=== PATIENT | male | born 1970 | race Two or more races ===

== ENCOUNTER 2018-03-26 13:47 | Emergency (ER) | payer MEDICAID, OTHER ==
[~2018-03-26] VITALS: Ht 167.6 cm; Wt 81.8 kg
[~2018-03-26 13:47] MED LIST: ATOR10TA PO; HYDR-4069 PO
[2018-03-26] MEDS ORDERED: normal saline 1000ML IV soln IVB ONE ×2 (14:05)
[2018-03-26] MEDS ORDERED: LORazepam 2 mg/ml vial IV ONE ×2 (14:05→16:45)
[2018-03-26] MEDS ORDERED: metoclopramide 5 mg/ml inj IV ONE (14:05)
[2018-03-26] MEDS ORDERED: diphenhydrAMINE 50 mg/ml inj IV ONE (14:05)
[2018-03-26 14:19] LABS: BASOPHILS # (AUTO) 0.2 X10'3 (0-0.2); BASOPHILS % (AUTO) 1.4 % (0-1); EOSINOPHILS % (AUTO) 0.2 % (0-6); HEMATOCRIT 53.8 % (42.0-52.0); LYMPHOCYTES # (AUTO) 1.6 X10'3 (1.1-4.8); LYMPHOCYTES % (AUTO) 11.1 % (21-51); MEAN CORPUSCULAR HEMOGLOBIN 30.1 PG (27.0-31.0); MEAN CORPUSCULAR HGB CONC 33.7 % (33.0-36.5); MEAN CORPUSCULAR VOLUME 89.2 FL (78-98); MEAN PLATELET VOLUME 9.5 FL (7.4-10.4); MONOCYTES # (AUTO) 0.5 X10'3 (0-0.9); MONOCYTES % (AUTO) 3.3 % (2-12); NEUTROPHILS # (AUTO) 11.8 X10'3 (1.8-7.7); PLATELET COUNT 298 X10'3 (140-440); RED BLOOD COUNT 6.04 X10'6 (4.70-6.10); RED CELL DISTRIBUTION WIDTH 12.5 % (11.5-14.5); WHITE BLOOD COUNT 14.1 X10'3 (4.5-11.0)
[2018-03-26 14:25] LABS: HEMOGLOBIN 18.2 g/dl (14.0-17.9)
[2018-03-26 14:44] LABS: ALANINE AMINOTRANSFERASE 63 U/L (12-78); ALBUMIN 4.6 G/DL (3.4-5.0); ALBUMIN/GLOBULIN RATIO 1.2 (1.1-1.5); ALKALINE PHOSPHATASE 107 IU/L (46-116); ANION GAP 12 (8-16); ASPARTATE AMINO TRANSFERASE 30 U/L (10-37); BILIRUBIN,TOTAL 0.5 MG/DL (0.1-1.0); BLOOD UREA NITROGEN 13 MG/DL (7-18); BUN/CREATININE RATIO 10.3 (5.4-32.0); CALCIUM 9.4 MG/DL (8.5-10.1); CHLORIDE 99 MMOL/L (99-107); CREATININE 1.26 MG/DL (0.60-1.10); GLUCOSE 170 MG/DL (70-104); LIPASE 129 U/L (73-393); POTASSIUM 4.3 MMOL/L (3.5-5.1); SODIUM 136 MMOL/L (135-145); TOTAL CARBON DIOXIDE 24.6 MMOL/L (24-32); TOTAL PROTEIN 8.5 G/DL (6.4-8.2); eGFR 62 ML/MIN
[2018-03-26] MEDS ORDERED: magnesium 2GM in 50ml NS 50 ML IV ONE (14:50)
[2018-03-26 15:34] LABS: CLARITY,URINE CLEAR (Clear); COLOR,URINE STRAW (Yellow); GLUCOSE, URINE NEGATIVE (Neg); KETONES,URINE 15 mg/dl (Neg); LEUKOCYTE ESTERASE ,URINE NEGATIVE (Neg); NITRITES, URINE NEGATIVE (Neg); OCCULT BLOOD,URINE NEGATIVE (Neg); PH,URINE 8.5 (4.8-8.0); PROTEIN,URINE NEGATIVE (Neg); UROBILINOGEN,URINE 0.2 E.U/dL (0.2-1.0)
[2018-03-26 15:39] LABS: UA COLLECTION TYPE URINAL
[2018-03-26] MEDS ORDERED: cloNIDine 0.1 mg tablet PO ONE (15:55)
[2018-03-26] MEDS ORDERED: cloNIDine 0.1 mg tablet PO SCH (15:55)
[2018-03-26 16:20] LABS: TROPONIN I < 0.04 NG/ML (0.0-0.05)
[2018-03-26] MEDS ORDERED: ondansetron/PF 4mg/2ml inj IV ONE (16:45)
[2018-03-26] MEDS ORDERED: hydrALAZINE 25 MG tablet PO STA (17:09)
[2018-03-26] MEDS ORDERED: metoprolol tartrate 50mg tablet PO ONE (17:10)
[2018-03-26] MEDS ORDERED: ONDA4TAB12 PO (18:39)
[2018-03-26] MEDS ORDERED: LISI40TA4 PO (18:39)
[2018-03-26 19:04] VITALS: BP 106/90
== END 2018-03-26 19:06 | disposition home or self-care (01) ==
LOC: ER 13:47
DX: R11.2 Nausea with vomiting, unspecified (principal); I10 Essential (primary) hypertension; F12.10 Cannabis abuse, uncomplicated; Z79.899 Other long term (current) drug therapy
CPT/HCPCS: 36415; 74176; 80053; 81003; 83690; 84484; 85025; 93005; 96361; 96365; 96366; 96375; 96376; 99284; J1200; J2060; J2405; J2765; J3475; J7030

== ENCOUNTER 2018-04-10 12:18 | Inpatient (IN) | payer OTHER | END 2018-04-12 12:26 | disposition home or self-care (01) | LOC: ER 12:18 → ED HOLD 14:55 → PCU 3S 19:35 ==

== ENCOUNTER 2018-10-14 16:01 | Emergency (ER) | payer MEDICAID ==
[~2018-10-14] VITALS: Ht 167.6 cm; Wt 85.0 kg
[~2018-10-14 16:01] MED LIST changes: +AMLO5TAB16 PO; +ASPI-1265 PO; -ATOR10TA PO; -HYDR-4069 PO; +HYDR25TA4 PO; +LISI40TA4 PO; +LOVA40TA2 PO; +METO25TA6 PO
[2018-10-14] MEDS ORDERED: aspirin 325mg tablet PO ONE (16:25)
[2018-10-14] MEDS ORDERED: LORazepam 2 mg/ml vial IV ONE (16:25)
[2018-10-14 16:40] LABS: BASOPHILS # (AUTO) 0.1 X10'3 (0-0.2); BASOPHILS % (AUTO) 0.6 % (0-1); EOSINOPHILS # (AUTO) 0.2 X10'3 (0-0.9); EOSINOPHILS % (AUTO) 1.7 % (0-6); HEMATOCRIT 45.8 % (42.0-52.0); HEMOGLOBIN 15.7 g/dl (14.0-17.9); LYMPHOCYTES # (AUTO) 2.1 X10'3 (1.1-4.8); LYMPHOCYTES % (AUTO) 21.9 % (21-51); MEAN CORPUSCULAR HEMOGLOBIN 29.8 PG (27.0-31.0); MEAN CORPUSCULAR HGB CONC 34.4 g/dL (33.0-36.5); MEAN CORPUSCULAR VOLUME 86.8 FL (78-98); MEAN PLATELET VOLUME 8.5 FL (7.4-10.4); MONOCYTES # (AUTO) 0.7 X10'3 (0-0.9); MONOCYTES % (AUTO) 7.9 % (2-12); NEUTROPHILS # (AUTO) 6.4 X10'3 (1.8-7.7); NEUTROPHILS % (AUTO) 67.9 % (42-75); PLATELET COUNT 306 X10'3 (140-440); RED BLOOD COUNT 5.27 X10'6 (4.70-6.10); RED CELL DISTRIBUTION WIDTH 13.9 % (11.5-14.5); WHITE BLOOD COUNT 9.5 X10'3 (4.5-11.0)
[2018-10-14] MEDS ORDERED: ketorolac trometh. 30mg/ml inj. IV ONE (16:45)
[2018-10-14 16:52] LABS: PARTIAL THROMBOPLASTIN TIME 29 SECONDS (22-32)
[2018-10-14 16:54] LABS: ALANINE AMINOTRANSFERASE 72 U/L (12-78); ALBUMIN 4.2 G/DL (3.4-5.0); ALBUMIN/GLOBULIN RATIO 1.1 (1.1-1.5); ALKALINE PHOSPHATASE 100 IU/L (46-116); ANION GAP 10 (8-16); ASPARTATE AMINO TRANSFERASE 24 U/L (10-37); BILIRUBIN,TOTAL 0.5 MG/DL (0.1-1.0); BLOOD UREA NITROGEN 20 MG/DL (7-18); CALCIUM 9.3 MG/DL (8.5-10.1); CHLORIDE 103 MMOL/L (99-107); CREATININE 1.67 MG/DL (0.60-1.10); GLUCOSE 97 MG/DL (70-104); POTASSIUM 3.3 MMOL/L (3.5-5.1); SODIUM 138 MMOL/L (135-145); TOTAL CARBON DIOXIDE 25.2 MMOL/L (24-32); eGFR 44 ML/MIN
[2018-10-14 19:47] VITALS: BP 123/56
== END 2018-10-14 19:48 | disposition home or self-care (01) ==
LOC: ER 16:02
DX: R07.89 Other chest pain (principal); I10 Essential (primary) hypertension; M54.2 Cervicalgia; I25.10 Atherosclerotic heart disease of native coronary artery without angina pectoris; E78.00 Pure hypercholesterolemia, unspecified; F12.90 Cannabis use, unspecified, uncomplicated; Z79.82 Long term (current) use of aspirin; Z79.899 Other long term (current) drug therapy
CPT/HCPCS: 36415; 71045; 80053; 84484; 85025; 85610; 85730; 93005; 96374; 96375; 99284; J1885; J2060

== ENCOUNTER 2019-06-25 14:11 | Emergency (ER) | payer MEDICAID ==
[~2019-06-25] VITALS: Ht 167.6 cm; Wt 86.0 kg
[2019-06-25] MEDS ORDERED: normal saline 1000ML IV soln IVB ONE ×3 (14:30→15:55)
[2019-06-25] MEDS ORDERED: ondansetron/PF 4mg/2ml inj IV ONE ×2 (14:30→15:55)
[2019-06-25 15:09] LABS: BASOPHILS # (AUTO) 0.1 X10'3 (0-0.2); BASOPHILS % (AUTO) 0.6 % (0-1); EOSINOPHILS % (AUTO) 0.1 % (0-6); HEMATOCRIT 50.6 % (42.0-52.0); HEMOGLOBIN 17.3 g/dl (14.0-17.9); LYMPHOCYTES # (AUTO) 1.4 X10'3 (1.1-4.8); LYMPHOCYTES % (AUTO) 9.5 % (21-51); MEAN CORPUSCULAR HGB CONC 34.3 g/dL (33.0-36.5); MEAN CORPUSCULAR VOLUME 87.5 FL (78-98); MEAN PLATELET VOLUME 9.4 FL (7.4-10.4); MONOCYTES # (AUTO) 0.4 X10'3 (0-0.9); MONOCYTES % (AUTO) 2.4 % (2-12); NEUTROPHILS # (AUTO) 12.9 X10'3 (1.8-7.7); NEUTROPHILS % (AUTO) 87.4 % (42-75); PLATELET COUNT 325 X10'3 (140-440); RED BLOOD COUNT 5.78 X10'6 (4.70-6.10); RED CELL DISTRIBUTION WIDTH 13.6 % (11.5-14.5); WHITE BLOOD COUNT 14.7 X10'3 (4.5-11.0)
[2019-06-25 15:14] LABS: ALANINE AMINOTRANSFERASE 40 U/L (12-78); ALBUMIN 4.4 G/DL (3.4-5.0); ALBUMIN/GLOBULIN RATIO 1.2 (1.1-1.5); ALKALINE PHOSPHATASE 119 IU/L (46-116); ANION GAP 14 (8-16); ASPARTATE AMINO TRANSFERASE 26 U/L (10-37); BILIRUBIN,TOTAL 0.7 MG/DL (0.1-1.0); BLOOD UREA NITROGEN 18 MG/DL (7-18); BUN/CREATININE RATIO 16.1 (5.4-32.0); CALCIUM 9.5 MG/DL (8.5-10.1); CHLORIDE 103 MMOL/L (99-107); CREATININE 1.12 MG/DL (0.60-1.10); GLUCOSE 174 MG/DL (70-104); LIPASE 137 U/L (73-393); POTASSIUM 3.2 MMOL/L (3.5-5.1); SODIUM 138 MMOL/L (135-145); TOTAL CARBON DIOXIDE 20.8 MMOL/L (24-32); TOTAL PROTEIN 8.2 G/DL (6.4-8.2); eGFR 70 ML/MIN
[2019-06-25] MEDS ORDERED: famotidine/PF 10 mg/ml inj IV ONE (15:25)
[2019-06-25] MEDS ORDERED: potassium Cl 20 mEq SR tablet PO STA (15:31)
[2019-06-25] MEDS ORDERED: iohexol 300mg/ml 100ml inj. ONE (15:59)
[2019-06-25 16:12] LABS: CLARITY,URINE CLEAR (Clear); COLOR,URINE YELLOW (Yellow); GLUCOSE, URINE 100 mg/dl (Neg); KETONES,URINE TRACE mg/dl (Neg); LEUKOCYTE ESTERASE ,URINE NEGATIVE (Neg); NITRITES, URINE NEGATIVE (Neg); OCCULT BLOOD,URINE TRACE-INTACT (Neg); PH,URINE 7.5 (4.8-8.0); PROTEIN,URINE NEGATIVE (Neg); UROBILINOGEN,URINE 0.2 E.U/dL (0.2-1.0)
[2019-06-25 16:16] LABS: UA COLLECTION TYPE CLN CATCH MIDSTREAM
[2019-06-25 16:29] LABS: BACTERIA,URINE NONE SEEN /HPF (Neg); SQUAMOUS EPITHELIAL CELL,UR NONE SEEN /LPF (FEW); WBC,URINE NONE SEEN /HPF (0-4)
[2019-06-25 16:49] LABS: URINE AMPHETAMINE SCREEN NEGATIVE (Neg); URINE BARBITUATE SCREEN NEGATIVE (Neg); URINE BENZODIAZEPINES SCREEN NEGATIVE (Neg); URINE CANNABINOID SCREEN POSITIVE (Neg); URINE COCAINE SCREEN NEGATIVE (Neg); URINE METHADONE SCREEN NEGATIVE (Neg); URINE OPIATE SCREEN NEGATIVE (Neg); URINE PHENCYCLIDINE SCREEN NEGATIVE (Neg)
[2019-06-25] MEDS ORDERED: oxyCODONE/APAP 5-325mg tablet PO ONE (16:55)
[2019-06-25] MEDS ORDERED: ketorolac trometh. 30mg/ml inj. IV ONE (16:55)
[2019-06-25] MEDS ORDERED: cloNIDine 0.1 mg tablet PO ONE (16:55)
[2019-06-25] MEDS ORDERED: LORazepam 2 mg/ml vial IV ONE (16:55)
[2019-06-25 17:09] LABS: ETHANOL < 0.010 GM/DL (0.0-0.010)
[2019-06-25] MEDS ORDERED: tamsulosin 0.4mg capsule PO ONE (17:55)
[2019-06-25 17:58] VITALS: BP 192/98
[2019-06-25] MEDS ORDERED: ONDA4TAB6 PO (18:33)
[2019-06-25] MEDS ORDERED: KETO10TA2 PO (18:33)
[2019-06-25] MEDS ORDERED: TADA20TA PO (18:33)
[2019-06-25] MEDS ORDERED: HYDR-4353 PO (18:33)
[2019-06-25] MEDS ORDERED: tamsulosin 0.4mg capsule PO SCH (21:00)
== END 2019-06-25 20:10 | disposition home or self-care (01) ==
LOC: ER 14:12
DX: N23 Unspecified renal colic (principal); N20.0 Calculus of kidney; D72.829 Elevated white blood cell count, unspecified; R42 Dizziness and giddiness; I10 Essential (primary) hypertension; E78.00 Pure hypercholesterolemia, unspecified; I25.10 Atherosclerotic heart disease of native coronary artery without angina pectoris; F12.90 Cannabis use, unspecified, uncomplicated; Z79.82 Long term (current) use of aspirin
CPT/HCPCS: 36415; 74177; 80053; 80305; 80320; 81001; 83690; 84145; 84484; 85025; 93005; 96361; 96374; 96375; 96376; 99285; J1885; J2060; J2405; J3490; J7030; Q9967

== ENCOUNTER 2019-12-28 17:25 | Emergency (ER) | payer MEDICAID ==
[~2019-12-28] VITALS: Ht 165.1 cm; Wt 80.0 kg
[~2019-12-28 17:25] MED LIST changes: +KETO10TA2 PO; +ONDA4TAB6 PO; +TADA20TA PO
[2019-12-28 19:06] LABS: BASOPHILS % (AUTO) 0.2 % (0-1); EOSINOPHILS % (AUTO) 0.1 % (0-6); HEMATOCRIT 47.3 % (42.0-52.0); HEMOGLOBIN 16.2 g/dl (14.0-17.9); LYMPHOCYTES % (AUTO) 7.4 % (21-51); MEAN CORPUSCULAR HEMOGLOBIN 30.4 PG (27.0-31.0); MEAN CORPUSCULAR HGB CONC 34.4 g/dL (33.0-36.5); MEAN CORPUSCULAR VOLUME 88.5 FL (78-98); MEAN PLATELET VOLUME 9.4 FL (7.4-10.4); MONOCYTES # (AUTO) 0.3 X10'3 (0-0.9); MONOCYTES % (AUTO) 2.4 % (2-12); NEUTROPHILS # (AUTO) 12.7 X10'3 (1.8-7.7); NEUTROPHILS % (AUTO) 89.9 % (42-75); PLATELET COUNT 340 X10'3 (140-440); RED BLOOD COUNT 5.34 X10'6 (4.70-6.10); RED CELL DISTRIBUTION WIDTH 13.9 % (11.5-14.5); WHITE BLOOD COUNT 14.1 X10'3 (4.5-11.0)
[2019-12-28 19:15] LABS: ALANINE AMINOTRANSFERASE 43 U/L (12-78); ALBUMIN 4.6 G/DL (3.4-5.0); ALBUMIN/GLOBULIN RATIO 1.3 (1.1-1.5); ALKALINE PHOSPHATASE 121 IU/L (46-116); ANION GAP 8 (8-16); ASPARTATE AMINO TRANSFERASE 20 U/L (10-37); BILIRUBIN,TOTAL 0.6 MG/DL (0.1-1.0); BLOOD UREA NITROGEN 19 MG/DL (7-18); BUN/CREATININE RATIO 16.8 (5.4-32.0); CALCIUM 9.8 MG/DL (8.5-10.1); CHLORIDE 103 MMOL/L (99-107); CREATININE 1.13 MG/DL (0.60-1.10); GLUCOSE 160 MG/DL (70-104); LIPASE 99 U/L (73-393); POTASSIUM 3.2 MMOL/L (3.5-5.1); SODIUM 134 MMOL/L (135-145); TOTAL CARBON DIOXIDE 22.8 MMOL/L (24-32); TOTAL PROTEIN 8.1 G/DL (6.4-8.2); eGFR 69 ML/MIN
[2019-12-28] MEDS ORDERED: ondansetron/PF 4mg/2ml inj IV ONE ×2 (19:20→19:25)
[2019-12-28] MEDS ORDERED: normal saline 1000ML IV soln IVB ONE (19:20)
[2019-12-28] MEDS ORDERED: pantoprazole 40 MG vial IV ONE (19:25)
[2019-12-28] MEDS ORDERED: morphine 10mg/ml inj. IV ONE (19:25)
--- NOTE | 2019-12-28 19:45 | NUR ---
PT O2 SATURATIONS FLUCTUATE FROM 95% TO 69% RA. PT PLACED ON 2 L NC AND KEEPING SATS ABOVE 90%. PT RESPIRATIONS SHALLOW BUT 18 PER MINUTE. PT DENIES ANY OTHER OPIOID USE TODAY. EMILY WEAVING INSPECTOR NOTIFIED.
--- NOTE | 2019-12-28 20:20 | NUR ---
PT TO CT ON 2 L NC PORTABLE OXYGEN TANK
[2019-12-28 21:20] LABS: CLARITY,URINE CLEAR (Clear); COLOR,URINE YELLOW (Yellow); GLUCOSE, URINE NEGATIVE (Neg); KETONES,URINE 15 mg/dl (Neg); LEUKOCYTE ESTERASE ,URINE NEGATIVE (Neg); NITRITES, URINE NEGATIVE (Neg); OCCULT BLOOD,URINE NEGATIVE (Neg); PH,URINE 8.5 (4.8-8.0); PROTEIN,URINE NEGATIVE (Neg); UROBILINOGEN,URINE 0.2 E.U/dL (0.2-1.0)
[2019-12-28 21:21] LABS: UA COLLECTION TYPE URINAL
--- NOTE | 2019-12-28 21:42 | NUR ---
PT PASSED PO CHALLENGE. NO VOMITING OR NAUSEA
[2019-12-28] MEDS ORDERED: HYDR-4383 PO (21:49)
[2019-12-28] MEDS ORDERED: FLO0.4C PO (21:49)
[2019-12-28 22:14] VITALS: BP 160/80
== END 2019-12-28 22:19 | disposition home or self-care (01) ==
LOC: ER 17:26
DX: N20.0 Calculus of kidney (principal); N13.30 Unspecified hydronephrosis; I25.10 Atherosclerotic heart disease of native coronary artery without angina pectoris; I10 Essential (primary) hypertension; F12.90 Cannabis use, unspecified, uncomplicated; Z79.899 Other long term (current) drug therapy
CPT/HCPCS: 36415; 74176; 80053; 81003; 83690; 85025; 96361; 96374; 96375; 99284; C9113; J2270; J2405; J7030

== ENCOUNTER 2019-12-30 20:43 | Emergency (ER) | payer MEDICAID ==
[~2019-12-30] VITALS: Ht 167.6 cm; Wt 79.5 kg
[~2019-12-30 20:43] MED LIST changes: +FLO0.4C PO; +HYDR-4383 PO
[2019-12-30] MEDS ORDERED: CefTRIAXone 2gm/D5W 50ml 50 ML IV ONE (20:50)
[2019-12-30] MEDS ORDERED: diphenhydrAMINE 50 mg/ml inj IV ONE (20:50)
[2019-12-30] MEDS ORDERED: metoclopramide 5 mg/ml inj IV ONE (20:50)
[2019-12-30] MEDS ORDERED: morphine 4 MG/ML inj SYRINge IV ONE (20:50)
[2019-12-30] MEDS ORDERED: ketorolac trometh. 30mg/ml inj. IV ONE (20:50)
[2019-12-30] MEDS ORDERED: normal saline 1000ML IV soln IV ONE (20:50)
[2019-12-30 21:17] LABS: BASOPHILS % (AUTO) 0.4 % (0-1); EOSINOPHILS % (AUTO) 0 % (0-6); HEMATOCRIT 48.2 % (42.0-52.0); HEMOGLOBIN 16.6 g/dl (14.0-17.9); LYMPHOCYTES # (AUTO) 1.4 X10'3 (1.1-4.8); LYMPHOCYTES % (AUTO) 11.1 % (21-51); MEAN CORPUSCULAR HEMOGLOBIN 30.3 PG (27.0-31.0); MEAN CORPUSCULAR HGB CONC 34.5 g/dL (33.0-36.5); MEAN CORPUSCULAR VOLUME 87.9 FL (78-98); MEAN PLATELET VOLUME 8.9 FL (7.4-10.4); MONOCYTES # (AUTO) 0.7 X10'3 (0-0.9); MONOCYTES % (AUTO) 5.8 % (2-12); NEUTROPHILS # (AUTO) 10.2 X10'3 (1.8-7.7); NEUTROPHILS % (AUTO) 82.7 % (42-75); PLATELET COUNT 343 X10'3 (140-440); RED BLOOD COUNT 5.48 X10'6 (4.70-6.10); RED CELL DISTRIBUTION WIDTH 13.6 % (11.5-14.5); WHITE BLOOD COUNT 12.3 X10'3 (4.5-11.0)
[2019-12-30 21:36] LABS: ALANINE AMINOTRANSFERASE 44 U/L (12-78); ALBUMIN 4.4 G/DL (3.4-5.0); ALBUMIN/GLOBULIN RATIO 1.2 (1.1-1.5); ALKALINE PHOSPHATASE 117 IU/L (46-116); ANION GAP 14 (8-16); ASPARTATE AMINO TRANSFERASE 18 U/L (10-37); BILIRUBIN,TOTAL 0.9 MG/DL (0.1-1.0); BLOOD UREA NITROGEN 20 MG/DL (7-18); BUN/CREATININE RATIO 15.2 (5.4-32.0); CALCIUM 9.1 MG/DL (8.5-10.1); CHLORIDE 97 MMOL/L (99-107); CREATININE 1.32 MG/DL (0.60-1.10); GLUCOSE 125 MG/DL (70-104); MAGNESIUM 1.6 MG/DL (1.5-2.4); SODIUM 135 MMOL/L (135-145); TOTAL CARBON DIOXIDE 24.2 MMOL/L (24-32); TROPONIN I < 0.04 NG/ML (0.0-0.05); eGFR 58 ML/MIN
[2019-12-30 21:40] LABS: POTASSIUM 2.6 MMOL/L (3.5-5.1)
[2019-12-30] MEDS ORDERED: normal saline 1000ML IV soln IVB ONE (21:55)
[2019-12-30] MEDS ORDERED: potassium Cl 20 mEq SR tablet PO STA (22:07)
[2019-12-30 23:38] LABS: CLARITY,URINE CLEAR (Clear); COLOR,URINE YELLOW (Yellow); GLUCOSE, URINE NEGATIVE (Neg); KETONES,URINE NEGATIVE (Neg); LEUKOCYTE ESTERASE ,URINE NEGATIVE (Neg); NITRITES, URINE NEGATIVE (Neg); OCCULT BLOOD,URINE SMALL (Neg); PROTEIN,URINE 30 mg/dl (Neg); UA COLLECTION TYPE NON-SPECIFIED; UROBILINOGEN,URINE 0.2 E.U/dL (0.2-1.0)
[2019-12-30 23:44] LABS: BACTERIA,URINE NONE SEEN /HPF (Neg); SQUAMOUS EPITHELIAL CELL,UR FEW /LPF (FEW); WBC,URINE 0-4 /HPF (0-4)
--- NOTE | 2019-12-31 01:03 | NUR ---
negative covid swab. dr. yoo notifiec. temp 98.7, ptwith no pain and no nausea. Reports he has not eaten for36 hrs and is hungry. bp 169/87
[2019-12-31 01:04] VITALS: BP 169/89
[2019-12-31] MEDS ORDERED: HYDR-3965 PO (01:10)
[2019-12-31] MEDS ORDERED: ONDA4TAB6 PO (01:10)
[2019-12-31] MEDS ORDERED: POTA20TA19 PO (01:10)
--- NOTE | 2019-12-31 01:14 | NUR ---
Dr. Barnes request to feed pt and give some po fluids , then to be DC'd.
--- NOTE | 2019-12-31 01:39 | NUR ---
pt eating sandwich, jello and crackers. no nausea.
== END 2019-12-31 01:51 | disposition home or self-care (01) ==
LOC: MERGE 20:44 → ER 20:44
DX: N20.0 Calculus of kidney (principal); E87.6 Hypokalemia; R50.9 Fever, unspecified; R10.30 Lower abdominal pain, unspecified; R06.02 Shortness of breath; R11.2 Nausea with vomiting, unspecified; Z20.828 Contact with and (suspected) exposure to other viral communicable diseases; Z79.899 Other long term (current) drug therapy
CPT/HCPCS: 36415; 71045; 80053; 81001; 83605; 83735; 84145; 84484; 85025; 87040; 87635; 93005; 96365; 96366; 96375; 99285; C9803; J0696; J1200; J1885; J2270; J2765; J7030

== ENCOUNTER 2020-03-02 16:39 | Emergency (ER) | payer MEDICAID ==
[~2020-03-02] VITALS: Ht 167.6 cm; Wt 77.3 kg
[~2020-03-02 16:39] MED LIST changes: -FLO0.4C PO
[2020-03-02] MEDS ORDERED: normal saline 1000ML IV soln IVB ONE (18:15)
[2020-03-02] MEDS ORDERED: ondansetron/PF 4mg/2ml inj IV ONE (18:15)
[2020-03-02 18:56] LABS: BASOPHILS % (AUTO) 0.2 % (0-1); EOSINOPHILS % (AUTO) 0 % (0-6); HEMATOCRIT 48.5 % (42.0-52.0); HEMOGLOBIN 16.8 g/dl (14.0-17.9); LYMPHOCYTES # (AUTO) 0.9 X10'3 (1.1-4.8); LYMPHOCYTES % (AUTO) 5.8 % (21-51); MEAN CORPUSCULAR HEMOGLOBIN 30.6 PG (27.0-31.0); MEAN CORPUSCULAR HGB CONC 34.6 g/dL (33.0-36.5); MEAN CORPUSCULAR VOLUME 88.5 FL (78-98); MEAN PLATELET VOLUME 9.2 FL (7.4-10.4); MONOCYTES # (AUTO) 0.9 X10'3 (0-0.9); NEUTROPHILS # (AUTO) 13.5 X10'3 (1.8-7.7); PLATELET COUNT 284 X10'3 (140-440); RED BLOOD COUNT 5.48 X10'6 (4.70-6.10); RED CELL DISTRIBUTION WIDTH 13.7 % (11.5-14.5); WHITE BLOOD COUNT 15.4 X10'3 (4.5-11.0)
[2020-03-02 19:14] LABS: ALANINE AMINOTRANSFERASE 57 U/L (12-78); ALBUMIN 4.3 G/DL (3.4-5.0); ALBUMIN/GLOBULIN RATIO 1.2 (1.1-1.5); ALKALINE PHOSPHATASE 106 IU/L (46-116); ANION GAP 10 (8-16); ASPARTATE AMINO TRANSFERASE 25 U/L (10-37); BILIRUBIN,TOTAL 0.6 MG/DL (0.1-1.0); BLOOD UREA NITROGEN 18 MG/DL (7-18); BUN/CREATININE RATIO 15.4 (5.4-32.0); CALCIUM 8.7 MG/DL (8.5-10.1); CHLORIDE 100 MMOL/L (99-107); CREATININE 1.17 MG/DL (0.60-1.10); GLUCOSE 143 MG/DL (70-104); LIPASE 161 U/L (73-393); MAGNESIUM 1.8 MG/DL (1.5-2.4); POTASSIUM 3.3 MMOL/L (3.5-5.1); SODIUM 139 MMOL/L (135-145); TOTAL CARBON DIOXIDE 28.9 MMOL/L (24-32); TOTAL PROTEIN 7.9 G/DL (6.4-8.2); eGFR 67 ML/MIN
[2020-03-02] MEDS ORDERED: piperacillin/tazo 3.375gm/50ml 50 ML IV ONE (19:25)
[2020-03-02] MEDS ORDERED: iohexol 300mg/ml 100ml inj. ONE (19:26)
[2020-03-02] MEDS ORDERED: metoprolol tartrate 50mg tablet PO ONE (20:00)
[2020-03-02] MEDS ORDERED: aspirin 81mg tablet.DR PO ONE ×2 (20:00→20:20)
[2020-03-02 20:07] LABS: CLARITY,URINE CLEAR (Clear); COLOR,URINE YELLOW (Yellow); GLUCOSE, URINE NEGATIVE (Neg); KETONES,URINE 15 mg/dl (Neg); LEUKOCYTE ESTERASE ,URINE NEGATIVE (Neg); NITRITES, URINE NEGATIVE (Neg); OCCULT BLOOD,URINE SMALL (Neg); PROTEIN,URINE 30 mg/dl (Neg); UROBILINOGEN,URINE 0.2 E.U/dL (0.2-1.0)
[2020-03-02 20:10] LABS: UA COLLECTION TYPE NON-SPECIFIED
[2020-03-02] MEDS ORDERED: metoclopramide 5 mg/ml inj IV ONE (20:10)
[2020-03-02 20:13] LABS: BACTERIA,URINE NONE SEEN /HPF (Neg); SQUAMOUS EPITHELIAL CELL,UR FEW /LPF (FEW); WBC,URINE 0-4 /HPF (0-4)
[2020-03-02] MEDS ORDERED: amLODIPine 5mg tablet PO ONE (20:35)
[2020-03-02 21:28] VITALS: BP 170/83
== END 2020-03-02 21:23 | disposition home or self-care (01) ==
LOC: ER 16:40
DX: R10.84 Generalized abdominal pain (principal); R11.0 Nausea; I25.10 Atherosclerotic heart disease of native coronary artery without angina pectoris; E78.00 Pure hypercholesterolemia, unspecified; I10 Essential (primary) hypertension; F12.90 Cannabis use, unspecified, uncomplicated; Z98.61 Coronary angioplasty status; Z98.890 Other specified postprocedural states; Z79.82 Long term (current) use of aspirin; Z79.899 Other long term (current) drug therapy
CPT/HCPCS: 36415; 74022; 74177; 80053; 81001; 83690; 83735; 84484; 85025; 93005; 96361; 96365; 96375; 99285; J2405; J2543; J2765; J7030; Q9967

== ENCOUNTER 2020-06-24 09:54 | Emergency (ER) | payer MEDICAID ==
[~2020-06-24] VITALS: Ht 167.6 cm; Wt 69.7 kg
[~2020-06-24 09:54] MED LIST changes: +LISI40TA13 PO; -LISI40TA4 PO; +LOP25T PO; -METO25TA6 PO
[2020-06-24] MEDS ORDERED: normal saline 1000ML IV soln IVB ONE ×2 (11:15→11:50)
[2020-06-24] MEDS ORDERED: ketorolac tromethamine 15mg/ml inj. IV ONE (11:15)
[2020-06-24] MEDS ORDERED: morphine 4 MG/ML inj SYRINge IV ONE (11:15)
[2020-06-24] MEDS ORDERED: ondansetron/PF 4mg/2ml inj IV ONE (11:15)
[2020-06-24 11:29] LABS: BASOPHILS % (AUTO) 0.2 % (0-1); EOSINOPHILS % (AUTO) 0 % (0-6); HEMATOCRIT 53.5 % (42.0-52.0); LYMPHOCYTES # (AUTO) 1.6 X10'3 (1.1-4.8); LYMPHOCYTES % (AUTO) 11.6 % (21-51); MEAN CORPUSCULAR HEMOGLOBIN 29.9 PG (27.0-31.0); MEAN CORPUSCULAR HGB CONC 34.6 g/dL (33.0-36.5); MEAN CORPUSCULAR VOLUME 86.5 FL (78-98); MEAN PLATELET VOLUME 9.1 FL (7.4-10.4); MONOCYTES # (AUTO) 1.1 X10'3 (0-0.9); MONOCYTES % (AUTO) 8.2 % (2-12); NEUTROPHILS # (AUTO) 10.7 X10'3 (1.8-7.7); PLATELET COUNT 228 X10'3 (140-440); RED BLOOD COUNT 6.19 X10'6 (4.70-6.10); RED CELL DISTRIBUTION WIDTH 13.9 % (11.5-14.5); WHITE BLOOD COUNT 13.4 X10'3 (4.5-11.0)
[2020-06-24] MEDS ORDERED: losartan 50mg tablet PO SCH (11:30)
[2020-06-24 11:34] LABS: HEMOGLOBIN 18.5 g/dl (14.0-17.9)
[2020-06-24 11:41] LABS: ALANINE AMINOTRANSFERASE 43 U/L (12-78); ALBUMIN 4.4 G/DL (3.4-5.0); ALBUMIN/GLOBULIN RATIO 1.2 (1.1-1.5); ALKALINE PHOSPHATASE 110 IU/L (46-116); ANION GAP 11 (8-16); ASPARTATE AMINO TRANSFERASE 21 U/L (10-37); BILIRUBIN,TOTAL 0.9 MG/DL (0.1-1.0); BLOOD UREA NITROGEN 17 MG/DL (7-18); BUN/CREATININE RATIO 15.9 (5.4-32.0); C-REACTIVE PROTEIN 0.23 MG/DL (0.0-0.5); CALCIUM 9.1 MG/DL (8.5-10.1); CHLORIDE 98 MMOL/L (99-107); CREATININE 1.07 MG/DL (0.60-1.10); GLUCOSE 127 MG/DL (70-104); LIPASE 127 U/L (73-393); POTASSIUM 3.2 MMOL/L (3.5-5.1); SODIUM 137 MMOL/L (135-145); TOTAL CARBON DIOXIDE 27.9 MMOL/L (24-32); TOTAL PROTEIN 8.1 G/DL (6.4-8.2); eGFR 73 ML/MIN
[2020-06-24] MEDS ORDERED: NAPR-56 PO (12:17)
[2020-06-24 12:53] VITALS: BP 150/83
[2020-06-24 12:53] LABS: CLARITY,URINE CLOUDY (Clear); COLOR,URINE RED (Yellow); GLUCOSE, URINE NEGATIVE (Neg); KETONES,URINE TRACE mg/dl (Neg); LEUKOCYTE ESTERASE ,URINE SMALL (Neg); NITRITES, URINE NEGATIVE (Neg); OCCULT BLOOD,URINE LARGE (Neg); PH,URINE 8.5 (4.8-8.0); PROTEIN,URINE 100 mg/dl (Neg)
[2020-06-24 12:54] LABS: UA COLLECTION TYPE NON-SPECIFIED
[2020-06-24 13:04] LABS: SQUAMOUS EPITHELIAL CELL,UR NONE SEEN /LPF (FEW)
[2020-06-24 13:06] LABS: BACTERIA,URINE NONE SEEN /HPF (Neg); RBC,URINE TNTC /HPF (0-2)
== END 2020-06-24 12:54 | disposition home or self-care (01) ==
LOC: ER 09:54
DX: N20.0 Calculus of kidney (principal); M54.5 Low back pain; R11.2 Nausea with vomiting, unspecified; R31.9 Hematuria, unspecified; I25.10 Atherosclerotic heart disease of native coronary artery without angina pectoris; E78.00 Pure hypercholesterolemia, unspecified; I10 Essential (primary) hypertension; I25.2 Old myocardial infarction; F12.90 Cannabis use, unspecified, uncomplicated; Z98.890 Other specified postprocedural states; Z79.899 Other long term (current) drug therapy
CPT/HCPCS: 36415; 80053; 81001; 83690; 85025; 86140; 87088; 96361; 96374; 96375; 99284; J1885; J2270; J2405; J7030

== ENCOUNTER 2023-09-10 20:52 | Emergency (ER) | payer MEDICAID ==
[~2023-09-10] VITALS: Ht 170.2 cm; Wt 87.3 kg
[~2023-09-10 20:52] MED LIST changes: +NAPR-56 PO
[2023-09-10 20:59] VITALS: BP 223/105; PULSE 99; RESP 20; TEMP 98.4; O2SAT 100
== END 2023-09-10 22:43 | disposition left against medical advice (07) ==
LOC: ER 20:52
DX: R11.2 Nausea with vomiting, unspecified (principal); R19.7 Diarrhea, unspecified; R68.83 Chills (without fever); Z53.21 Procedure and treatment not carried out due to patient leaving prior to being seen by health care provider

== ENCOUNTER 2023-12-05 13:27 | Outpatient (CLI) | payer MEDICAID | END 2023-12-05 23:59 | disposition home or self-care (01) | LOC: MRI02 13:27 | PROVIDERS: ATTEND Student in an Organized Health Care Education/Training Program | DX: M48.07 Spinal stenosis, lumbosacral region (principal); M51.26 Other intervertebral disc displacement, lumbar region; M47.816 Spondylosis without myelopathy or radiculopathy, lumbar region; M79.604 Pain in right leg | CPT/HCPCS: 72148 ==

== ENCOUNTER 2024-03-17 11:11 | Inpatient (IN) | payer MEDICAID ==
[~2024-03-17] VITALS: Ht 167.6 cm; Wt 81.8 kg
[2024-03-17 11:30] LABS: BASOPHILS % (AUTO) 0.3 % (0-1); EOSINOPHILS % (AUTO) 0.3 % (0-6); HEMATOCRIT 51.3 % (42.0-52.0); HEMOGLOBIN 17.7 g/dl (14.0-17.9); LYMPHOCYTES # (AUTO) 1.6 X10'3 (1.1-4.8); LYMPHOCYTES % (AUTO) 9.9 % (21-51); MEAN CORPUSCULAR HEMOGLOBIN 30.1 PG (27.0-31.0); MEAN CORPUSCULAR HGB CONC 34.5 g/dL (33.0-36.5); MEAN CORPUSCULAR VOLUME 87.1 FL (78-98); MONOCYTES # (AUTO) 0.5 X10'3 (0-0.9); NEUTROPHILS # (AUTO) 13.8 X10'3 (1.8-7.7); NEUTROPHILS % (AUTO) 86.5 % (42-75); PLATELET COUNT 290 X10'3 (140-440); RED BLOOD COUNT 5.88 X10'6 (4.70-6.10); RED CELL DISTRIBUTION WIDTH 14.2 % (11.5-14.5); WHITE BLOOD COUNT 15.9 X10'3 (4.5-11.0)
[2024-03-17 11:48] LABS: ALANINE AMINOTRANSFERASE 44 U/L (12-78); ALBUMIN 4.5 G/DL (3.4-5.0); ALBUMIN/GLOBULIN RATIO 1.1 (1.1-1.5); ALKALINE PHOSPHATASE 113 IU/L (46-116); ANION GAP 8 (8-16); ASPARTATE AMINO TRANSFERASE 21 U/L (10-37); BILIRUBIN,TOTAL 0.5 MG/DL (0.1-1.0); BLOOD UREA NITROGEN 14 MG/DL (7-18); BUN/CREATININE RATIO 12.4 (10.0-20.0); CALCIUM 9.2 MG/DL (8.5-10.1); CHLORIDE 103 MMOL/L (99-107); CREATININE 1.13 MG/DL (0.60-1.10); GLUCOSE 237 MG/DL (70-104); POTASSIUM 3.4 MMOL/L (3.5-5.1); SODIUM 140 MMOL/L (135-145); TOTAL CARBON DIOXIDE 29.1 MMOL/L (24-32); TOTAL PROTEIN 8.5 G/DL (6.4-8.2); eCRCL 69 ML/MIN; eGFR 68 ML/MIN
[2024-03-17 11:55] LABS: PRO BRAIN NATRIURETIC PEPTIDE 107 PG/ML (0-125)
[2024-03-17] MEDS: ondansetron/PF 4mg/2ml inj IV ONE (12:28)
[2024-03-17 12:50] LABS: BILIRUBIN,URINE NEGATIVE (Neg); CLARITY,URINE CLEAR (Clear); COLOR,URINE YELLOW (Yellow); GLUCOSE, URINE 500 mg/dl (Neg); KETONES,URINE 15 mg/dl (Neg); LEUKOCYTE ESTERASE ,URINE NEGATIVE (Neg); NITRITES, URINE NEGATIVE (Neg); OCCULT BLOOD,URINE NEGATIVE (Neg); PH,URINE 8.5 (4.8-8.0); PROTEIN,URINE 30 mg/dl (Neg); UA COLLECTION TYPE VOIDED; UROBILINOGEN,URINE 0.2 E.U/dL (0.2-1.0)
[2024-03-17] MEDS: normal saline 1000ml 1,000 ML IV ONE (12:50)
[2024-03-17 12:56] LABS: BACTERIA,URINE NONE SEEN /HPF (Neg); RBC,URINE NONE SEEN /HPF (0-2); SQUAMOUS EPITHELIAL CELL,UR NONE SEEN /LPF (FEW); WBC,URINE 0-4 /HPF (0-4)
[2024-03-17] MEDS ORDERED: iohexol 300mg/ml 100ml inj. ONE (12:59)
[2024-03-17 13:01] LABS: LIPASE 41 U/L (16-77)
[2024-03-17] MEDS ORDERED: NPH, human insulin isophane inj. SQ STA (16:07)
[2024-03-17] MEDS ORDERED: hydrALAZINE 20mg/ml inj. IV ONE (16:10)
[2024-03-17] MEDS: proCHLORperazine 10 MG/2 ml inj IV ONE (16:24)
[2024-03-17] MEDS: diphenhydrAMINE 50 mg/ml inj IV ONE (16:24)
[2024-03-17] MEDS ORDERED: mag hydrox/Alum hydrox/simeth 30ml oral suspension PO PRN (16:50)
[2024-03-17] MEDS ORDERED: magnesium sulf-water 4G/100mL 100 ML IV PRN (16:50)
[2024-03-17] MEDS ORDERED: magnesium hydroxide 30ml (MOM) UD suspension PO PRN (16:50)
[2024-03-17] MEDS ORDERED: morphine 2 MG/ML inj. syringe IV PRN (16:50)
[2024-03-17] MEDS ORDERED: magnesium Cl slow-release 64mg tablet PO PRN (16:50)
[2024-03-17] MEDS ORDERED: acetaminophen 325mg tablet PO PRN (16:50)
[2024-03-17] MEDS ORDERED: potassium Cl 40MEQ/1/2NS 520ml 520 ML IV PRN (16:50)
[2024-03-17] MEDS ORDERED: magnesium sulf-water 2g/50mL 50 ML IV PRN (16:50)
[2024-03-17] MEDS ORDERED: glucagon, human recombinant 1mg kit SUBCUT PRN (17:30)
[2024-03-17] MEDS ORDERED: DEXTROSE 15 GM of carb/4 tabs (each vial/BOTTLE has 4 tablets) PO PRN ×2 (17:30)
[2024-03-17] MEDS ORDERED: dextrose 50%-water 50ml dispensing syringe IV PRN ×2 (17:30)
[2024-03-17 17:38] LABS: HEMOGLOBIN A1C 6.2 % (4.5-6.2)
[2024-03-17] MEDS: normal saline 500ml IV soln 500 ML IV ONE (17:47)
[2024-03-17] MEDS: niCARDipine-NS 40mg/200ml IVPB IV SCH (17:48)
[2024-03-17] MEDS: normal saline 1000ml 1,000 ML IV SCH (17:55)
[2024-03-17] MEDS: CefTRIAXone/D5W-Rocephin 1gm 50 ML IV SCH (17:57)
[2024-03-17] MEDS: potassium Cl 20 mEq SR tablet PO PRN (18:51)
[2024-03-17] MEDS: K and/or MAG REPLACEMENT MC SCH (20:00)
[2024-03-17] MEDS ORDERED: GABA-530 PO (20:49)
[2024-03-17 21:00] VITALS: BP 135/61; PULSE 99; RESP 22; TEMP 100.6; O2SAT 95
[2024-03-17 22:00] VITALS: BP 154/69; PULSE 108; RESP 24; TEMP 97.5; O2SAT 96
[2024-03-17] MEDS: ondansetron/PF 4mg/2ml inj IV PRN (22:18)
[2024-03-17 22:30] VITALS: BP 233/77
[2024-03-17] MEDS: heparin, porcine 5000 units/ml vial SQ SCH (22:59)
[2024-03-17 23:00] VITALS: BP 169/62
[2024-03-17] MEDS: INSULIN LISPRO 100 UNIT/ML INSULN.PEN MULTI-DOSE SQ SCH (23:05)
[2024-03-17] MEDS: insulin glargine (Lantus) pen - multi-dose SQ SCH (23:06)
[2024-03-17 23:30] VITALS: BP 137/72
[2024-03-18] VITALS (13 sets, daily range): BP systolic 113–162; BP diastolic 62–72; PULSE 87–113; RESP 12–24; TEMP 96.1–98.1; O2SAT 93–97
[2024-03-18] MEDS: metoclopramide 5 mg/ml inj IV ONE (02:17)
[2024-03-18] MEDS: pantoprazole 40 MG vial IV ONE (02:17)
[2024-03-18 07:01] LABS: ALANINE AMINOTRANSFERASE 31 U/L (12-78); ALBUMIN 3.5 G/DL (3.4-5.0); ALBUMIN/GLOBULIN RATIO 1.1 (1.1-1.5); ALKALINE PHOSPHATASE 78 IU/L (46-116); ANION GAP 9 (8-16); ASPARTATE AMINO TRANSFERASE 19 U/L (10-37); BILIRUBIN,TOTAL 0.6 MG/DL (0.1-1.0); BLOOD UREA NITROGEN 13 MG/DL (7-18); BUN/CREATININE RATIO 12.4 (10.0-20.0); CALCIUM 7.9 MG/DL (8.5-10.1); CHLORIDE 104 MMOL/L (99-107); CREATININE 1.05 MG/DL (0.60-1.10); GLUCOSE 122 MG/DL (70-104); MAGNESIUM 1.8 MG/DL (1.5-2.4); SODIUM 139 MMOL/L (135-145); TOTAL CARBON DIOXIDE 25.7 MMOL/L (24-32); TOTAL PROTEIN 6.6 G/DL (6.4-8.2); eCRCL 74 ML/MIN; eGFR 74 ML/MIN
[2024-03-18 07:06] LABS: BASOPHILS % (AUTO) 0.1 % (0-1); EOSINOPHILS % (AUTO) 0.1 % (0-6); HEMATOCRIT 44.8 % (42.0-52.0); HEMOGLOBIN 15.4 g/dl (14.0-17.9); LYMPHOCYTES # (AUTO) 2.5 X10'3 (1.1-4.8); MEAN CORPUSCULAR HEMOGLOBIN 30.1 PG (27.0-31.0); MEAN CORPUSCULAR HGB CONC 34.4 g/dL (33.0-36.5); MEAN CORPUSCULAR VOLUME 87.4 FL (78-98); MEAN PLATELET VOLUME 9.5 FL (7.4-10.4); MONOCYTES # (AUTO) 1.4 X10'3 (0-0.9); MONOCYTES % (AUTO) 7.7 % (2-12); NEUTROPHILS # (AUTO) 13.7 X10'3 (1.8-7.7); NEUTROPHILS % (AUTO) 78.1 % (42-75); PLATELET COUNT 239 X10'3 (140-440); RED BLOOD COUNT 5.13 X10'6 (4.70-6.10); RED CELL DISTRIBUTION WIDTH 14.1 % (11.5-14.5); WHITE BLOOD COUNT 17.6 X10'3 (4.5-11.0)
[2024-03-18 07:17] LABS: POTASSIUM 2.8 MMOL/L (3.5-5.1)
[2024-03-18] MEDS: niCARDipine-NS 40mg/200ml IVPB 200 ML IV SCH ×2 (07:18→07:47)
[2024-03-18] MEDS: labetalol 100mg tablet PO SCH (07:40)
[2024-03-18] MEDS ORDERED: hydrALAZINE 20mg/ml inj. IV PRN (08:30)
[2024-03-18] MEDS: potassium Cl 20 mEq SR tablet PO PRN (08:55)
[2024-03-18] MEDS ORDERED: FLU VACC TS2024-25(6MOS UP)/PF 45 MCG/0.5 ML SYRINGE IMVAC ONE (10:00)
[2024-03-18 10:07] LABS: BILIRUBIN,URINE NEGATIVE (Neg); CLARITY,URINE CLEAR (Clear); COLOR,URINE YELLOW (Yellow); GLUCOSE, URINE 250 mg/dl (Neg); KETONES,URINE NEGATIVE (Neg); LEUKOCYTE ESTERASE ,URINE TRACE (Neg); NITRITES, URINE NEGATIVE (Neg); OCCULT BLOOD,URINE NEGATIVE (Neg); PROTEIN,URINE NEGATIVE (Neg); UROBILINOGEN,URINE 0.2 E.U/dL (0.2-1.0)
[2024-03-18 10:17] LABS: UA COLLECTION TYPE CLN CATCH MIDSTREAM
[2024-03-18 10:19] LABS: BACTERIA,URINE NONE SEEN /HPF (Neg); RBC,URINE NONE SEEN /HPF (0-2); SQUAMOUS EPITHELIAL CELL,UR FEW /LPF (FEW); WBC,URINE 0-4 /HPF (0-4)
[2024-03-18 10:52] LABS: URINE AMPHETAMINE SCREEN NEGATIVE (Neg); URINE BARBITUATE SCREEN NEGATIVE (Neg); URINE BENZODIAZEPINES SCREEN NEGATIVE (Neg); URINE CANNABINOID SCREEN POSITIVE (Neg); URINE COCAINE SCREEN NEGATIVE (Neg); URINE METHADONE SCREEN NEGATIVE (Neg); URINE OPIATE SCREEN NEGATIVE (Neg); URINE PHENCYCLIDINE SCREEN NEGATIVE (Neg)
[2024-03-18] MEDS ORDERED: ONDA-103 PO (15:14)
[2024-03-18] MEDS ORDERED: PANT-47 PO (15:14)
[2024-03-18] MEDS ORDERED: CEFD300C3 PO (15:14)
[2024-03-18] MEDS ORDERED: METO-395 PO (15:14)
[2024-03-18] MEDS ORDERED: LACT1CAP26 PO (15:14)
[2024-03-18] MEDS ORDERED: METF-1203 PO (15:43)
[2024-03-18] MEDS ORDERED: LOSA50TA64 PO (15:43)
[2024-03-18] MEDS: pantoprazole 40 MG vial IV STA (15:54)
== END 2024-03-18 17:50 | disposition home or self-care (01) | DRG 199 ==
LOC: ER 11:12 → ED HOLD 16:56 → PCU 3S 21:10
PROVIDERS: ADMIT Family Medicine; ATTEND Family Medicine
PROC: BW211ZZ Computerized Tomography (CT Scan) of Abdomen and Pelvis using Low Osmolar Contrast (ICD-10-PCS; principal; 2024-03-17)
DX: I16.1 Hypertensive emergency (principal); D72.829 Elevated white blood cell count, unspecified; E11.65 Type 2 diabetes mellitus with hyperglycemia; E78.00 Pure hypercholesterolemia, unspecified; F12.90 Cannabis use, unspecified, uncomplicated; R11.2 Nausea with vomiting, unspecified; I25.10 Atherosclerotic heart disease of native coronary artery without angina pectoris; I10 Essential (primary) hypertension; I25.2 Old myocardial infarction; Z79.899 Other long term (current) drug therapy; Z90.49 Acquired absence of other specified parts of digestive tract; Z82.49 Family history of ischemic heart disease and other diseases of the circulatory system
CPT/HCPCS: 36415; 71045; 74177; 80053; 80305; 81001; 82948; 83036; 83605; 83690; 83735; 83880; 84132; 84145; 84484; 85025; 85379; 87040; 87081; 87088; 93005; 93306; 96374; 96375; 99285; G0378; J0696; J0780; J1200; J1644; J1815; J2405; J2470; J2765; J3490; J7030; J7040; Q9967

== ENCOUNTER 2024-11-19 08:49 | Outpatient (CLI) | payer MEDICAID ==
[~2024-11-19 08:49] MED LIST changes: +CEFD300C3 PO; +GABA-530 PO; -HYDR-4383 PO; -HYDR25TA4 PO; -KETO10TA2 PO; +LACT1CAP26 PO; -LISI40TA13 PO; -LOP25T PO; +LOSA50TA64 PO; +METO-395 PO; -NAPR-56 PO; +ONDA-103 PO; -ONDA4TAB6 PO; +PANT-47 PO; -TADA20TA PO
--- NOTE | 2024-11-19 09:33 | RADIOLOGY REPORT ---
EXAM: US ULTRASOUND KIDNEY NON VASC HISTORY: UNSPECIFIED ABDOMINAL PAIN COMPARISON: CT scan of the abdomen and pelvis dated 03/17/2024 was not made available in the PACS sys [facility] for viewing. TECHNIQUE: Ultrasound evaluation of the kidneys was performed. FINDINGS: The right kidney measures 11.2 x 5.8 x 5.8 cm. The left kidney measures 11.4 x 6.0 x 5.6 cm . No hydronephrosis, solid renal masses, cortical thinning, or abnormal cortical echogenicity bilater ally. Prevoid urinary bladder volume is calculated at 369 mL. Postvoid urinary bladder volume is rodrick culated at 34 mL. The bilateral ureteral jets were visualized sonographically. No masses or abnormal wall thickening are identified about the urinary bladder. IMPRESSION: 1. Normal sonographic appearance of the bilateral kidneys. 2. Mild urinary bladder postvoid residual volume. Otherwise normal sonographic appearance of the urin kade bladder.
== END 2024-11-19 23:59 | disposition home or self-care (01) ==
LOC: RAD 08:49
DX: R10.9 Unspecified abdominal pain (principal)
CPT/HCPCS: 76770

== ENCOUNTER 2025-03-20 14:12 | Inpatient (IN) | payer MEDICAID ==
[~2025-03-20] VITALS: Ht 170.2 cm; Wt 86.3 kg
--- NOTE | 2025-03-20 14:36 | ELECTROCARDIOGRAPH REPORT ---
[facility] Test Date: 2025-03-20 Test Time: 14:34:16 Pat Name: ANURADHA JEAN Department: EMERGENCY ROOM Room: Gender: M Policy Specialist: TIM[place] : 1970 Requested By: TRACY WHITFIELD Order Number: [id number] Reading MD: Dr. Sanya Martell Measurements Intervals [place] Rate: 70 P: 71 [place]: 158 QRS: 135 QRSD: 166 T: 2 QT: 510 QTc: 551 Interpretive Statements Sinus rhythm RBBB and LPFB Inferolateral infarct, old Baseline wander in lead(s) III,aVL,aVF Electronically Signed On 03-20-2025 18:12:[address] Sanya Martell Please click the below link to view image of tracing.
[2025-03-20 15:21] LABS: MEAN PLATELET VOLUME 9.7 FL (7.4-10.4); RED CELL DISTRIBUTION WIDTH 13.6 % (11.5-14.5)
[2025-03-20 15:32] LABS: CREATININE 1.26 MG/DL (0.60-1.10); TOTAL CARBON DIOXIDE 22.5 MMOL/L (24-32); eCRCL 61 ML/MIN; eGFR 60 ML/MIN
[2025-03-20] MEDS: ondansetron/PF 4mg/2ml inj IV ONE ×2 (15:57→20:42)
[2025-03-20] MEDS: morphine 4 MG/ML inj SYRINge IV ONE (16:06)
--- NOTE | 2025-03-20 17:34 | RADIOLOGY REPORT ---
PROCEDURE: CT CTA ABDOMEN PELVIS Reason for study/Clinical History: mesenteric ischemia;abdominal pain Comparison Study: CT CT ABDOMEN PELVIS on DOS: 03/17/24, CT ABDOMEN PELVIS on DOS: 03/02/20, CT ABDOMEN PELVIS on DOS: 12/28/19 TECHNIQUE: Using a multidector slice CT scanner volumetric data acquisition of abdomen and pelvis was obtained with following intravenous administration of intravenous contrast without any reported adverse effects. 3D images/MIP were performed and reviewed for reporting. Radiation Dose Information: CT Dose: CTDI volume is 28.59 mode was not mGy. Dose-length product is 2822.13 mGy*cm FINDINGS: Vascular: No evidence of aortic aneurysm. Focal noncalcified plaque over the left anterior medial supra renal aorta. Mild atherosclerotic calcification of the infrarenal aorta and bilateral iliacs. Celiac artery, SMA, and KAT and their branches are unremarkable. Bilateral renal arteries are unremarkable. The lung bases are clear. Partially visualized heart is unremarkable. Hepatic steatosis. Mild hepatomegaly. Otherwise, liver, spleen, gallbladder, pancreas and adrenal glands unremarkable. Subcentimeter hypodense bilateral renal lesions that are too small to characterize. Punctate nonobstructing left renal calculus. Otherwise, kidneys, ureters and urinary bladder unremarkable. Prostate measures 3.9 x 3.7 cm. Small hiatal hernia. Mild gastric wall thickening. Small bowel loops unremarkable. Appendix is unremarkable. Large bowel is unremarkable. No evidence of intraperitoneal free air or free fluid. No significant lymphadenopathy. The soft tissues unremarkable. Sclerotic focus over the right sacral iliac bones which may represent small bone islands with Blastic lesions not excluded. No evidence of acute osseous abnormalities. IMPRESSION: No Evidence of aortic aneurysm or dissection. Mild atherosclerotic calcification of the aorta and bilateral iliacs with calcified and noncalcified plaque. Mild hepatomegaly with hepatic steatosis. Small hiatal hernia. Mild gastric wall thickening which may be due to inadequate distention/gastritis.
[2025-03-20] MEDS: diltiazem-NS 100mg/100ml 100 ML IV SCH (17:36)
[2025-03-20 17:47] LABS: LEUKOCYTE ESTERASE ,URINE NEGATIVE (Neg); NITRITES, URINE NEGATIVE (Neg); OCCULT BLOOD,URINE NEGATIVE (Neg)
[2025-03-20 17:52] LABS: UA COLLECTION TYPE URINAL
[2025-03-20 17:54] LABS: MUCUS STRANDS NONE SEEN /LPF (Neg); SQUAMOUS EPITHELIAL CELL,UR FEW /LPF (FEW)
--- NOTE | 2025-03-20 20:31 | Physician Documentation ---
History of Present Illness Chief Complaint: Abdominal Pain w/vomiting Stated Complaint: HIGH BP/VOMITING Time Seen by MD: 15:38 Primary Medical Doctor: [facility]. Sock And Stocking Ironer: None Mode of Arrival: Ambulatory, Dropped Off HPI Intractable nausea vomiting gastritis denies EtOH marijuana intractable pain Medication Reconciliation Allergies: Coded Allergies: No Known Allergies (Unverified , 03/17/24) Scheduled Amlodipine Besylate (Amlodipine Besylate), 1 TAB PO DAILY, (Reported) Aspirin (Aspirin), 1 TAB.CHEW PO DAILY, (Reported) Losartan Potassium (Losartan Potassium), 1 TAB PO DAILY, (Reported) Metformin HCl (Metformin HCl), 1 TAB PO BID Metoprolol Succinate (Metoprolol Succinate), 1 TAB PO DAILY, (Reported) Pantoprazole Sodium (PROTONIX tablet), 40 MG PO DAILY, (Reported) Rosuvastatin Calcium (Rosuvastatin Calcium), 1 TAB PO HS, (Reported) Discontinued Medications Amlodipine Besylate (Amlodipine Besylate), 10 MG PO DAILY Discontinued Reason: patient no longer taking Amlodipine Besylate (Amlodipine Besylate), 1 TAB PO DAILY, (Reported) Discontinued Reason: patient no longer taking Cefdinir (Cefdinir), 1 CAP PO Q12H Discontinued Reason: patient no longer taking Gabapentin (Gabapentin), 300 MG PO BID, (Reported) Discontinued Reason: patient no longer taking Lactobacillus Rhamnosus (Culturelle), 1 CAP PO DAILY Discontinued Reason: patient no longer taking Losartan Potassium (Losartan Potassium), 100 MG PO DAILY Discontinued Reason: patient no longer taking Lovastatin (Lovastatin), 1 TAB PO DAILY Discontinued Reason: patient no longer taking Metoprolol Succinate (Metoprolol Succinate), 50 MG PO DAILY Discontinued Reason: patient no longer taking Ondansetron HCl (Ondansetron HCl), 1 TAB PO Q4HPRN PRN for nausea/vomiting Discontinued Reason: patient no longer taking Pantoprazole Sodium (PROTONIX tablet), 40 MG PO DAILY Discontinued Reason: patient no longer taking Past Medical History Past Medical History: Coronary Artery Disease, High Cholesterol, Hypertension, Myocardial Infarction, Hernia Past Surgical History: angioplasty, other Other Past Surgical History: hernia repair Patient History: FH: hypertension FATHER (complications from being hit by a car on side of road), , Age: 73 Smoking Status: Never smoker Alcohol Use: None Drug Use: marijuana Lives with: Alone Lives In: Home Occupation: employed Review of Systems All Other Systems at this time: Reviewed and Negative ROS Constitutional: Negative for fever and chills. HENT: Negative for sore throat and rhinorrhea. Eyes: Negative for pain and redness. Respiratory: Negative for cough and SOB. Cardiovascular: Negative for chest pain and palpitations. Gastrointestinal: Positive for abdominal pain, nausea and vomiting. . Genitourinary: Negative for dysuria and hematuria. Musculoskeletal: Negative for acute back pain and acute neck pain. Skin: Negative for rash and pruritus. Neurological: Negative for acute numbness or weakness. Physical Exam Vital Signs: Temperature: 98.6, Source: Oral, Heart Rate: 76, Respiratory Rate: 18, BP: 189/109, Pulse Oximetry: 98, Weight: 83.900 Oxygen Flow Rate: 0 Physical Exam General: Awake [] distress. Verbal Head: No trauma Eyes: Nl lids Nl conjunctiva. No eye discharge ENT: Mucous membranes Nl. Lips Nl. No lesions Neck: Supple. No JVD. No visible mass Resp: Rate normal. No respiratory distress. No retractions. Normal air flow. No wheezes, rhonchi, or rales. Heart: Regular rhythm. No murmur. No rub Abdomen: Soft. Nontender. No guarding. No rebound Musc/skeletal: No calf or popliteal tenderness. No edema Skin: No rash. No petechiae. Not diaphoretic Neuro: Alert, oriented. Normal speech Progress Results/Orders Results/Orders Orders - MICKY WHITFIELD MD Electrocardiogram (03/20/25 14:17) 2 Large Bore Ivs (03/20/25 ) Cta Abdomen Pelvis (03/20/25 ) Diltiazem-Ns 100mg/100ml (Cardizem-Ns 10 (03/20/25 17:25) Page Hospitalist (03/20/25 18:28) Fill Out Med Reconciliation (03/20/25 18:28) Completed Orders - MICKY WHITFIELD MD Cbc/Diff (03/20/25 14:17) BMP (03/20/25 14:17) Lipase (03/20/25 14:17) CMP (03/20/25 14:17) Electrocardiogram (03/20/25 14:17) Hs Troponin I W Calculations (03/20/25 14:17) Morphine 4mg/Ml Inj. (Morphine Inj.) (03/20/25 15:45) Pantoprazole 40mg Iv (Protonix 40mg Iv) (03/20/25 15:45) Ondansetron Inj. (Zofran 4mg/2ml Vial) (03/20/25 15:45) LA (03/20/25 15:41) Pantoprazole 40mg Iv (Protonix 40mg Iv) (03/20/25 15:45) Morphine 2mg/Ml Inj. (Morphine Inj.) (03/20/25 16:00) Cta Abdomen Pelvis (03/20/25 ) Iohexol 350mg/Ml 100ml (Omnipaque 350mg/ (03/20/25 16:15) Lactic,2hr (03/20/25 17:46) Ua W/Microscopic, Cult If Ind (03/20/25 17:43) Medications Received in ER Medications (Trade) Dose Ordered Sig/Maximiliano Route PRN Reason Start Time Stop Time Status Last Admin Dose Admin (Zofran 4mg/2ml vial) 4 mg ONCE ONCE IV 03/20/25 15:45 03/20/25 15:46 DC 03/20/25 15:57 4 MG (Protonix 40mg IV) 40 mg ONCE ONCE IV 03/20/25 15:45 03/20/25 15:49 DC 03/20/25 15:59 40 MG (morphine inj.) 6 mg ONCE ONCE IV 03/20/25 16:00 03/20/25 16:01 DC 03/20/25 16:03 6 MG Diltiazem HCl 100 ml @ 5 mls/hr Q20H IV 03/20/25 17:25 03/20/25 17:36 5 MLS/HR Vital Signs 03/20/25 03/20/25 03/20/25 03/20/25 14:12 15:20 15:35 16:03 Temp 98.1 98.6 Pulse 74 65 Resp 16 16 22 36 B/P (MAP) 200/96 190/92 (124) Pulse Ox 100 98 O2 Flow Rate 0 0 03/20/25 03/20/25 03/20/25 17:36 17:40 18:44 Pulse 73 68 76 Resp 14 18 B/P (MAP) 220/113 225/109 (147) 189/109 (135) Pulse Ox 99 98 Laboratory Tests Test 03/20/25 14:44 03/20/25 16:03 03/20/25 17:43 03/20/25 17:53 White Blood Count 14.4 H Red Blood Count 5.93 Hemoglobin 17.5 Hematocrit 50.6 Mean Corpuscular Volume 85.2 Mean Corpuscular Hemoglobin 29.5 Mean Corpuscular Hemoglobin Concent 34.7 Red Cell Distribution Width 13.6 Platelet Count 358 Mean Platelet Volume 9.7 Neutrophils (%) (Auto) 83.9 H Lymphocytes (%) (Auto) 13.3 L Monocytes (%) (Auto) 2.2 Eosinophils (%) (Auto) 0.2 Basophils (%) (Auto) 0.4 Neutrophils # (Auto) 12.1 H Lymphocytes # (Auto) 1.9 Monocytes # (Auto) 0.3 Eosinophils # (Auto) 0.0 Basophils # (Auto) 0.1 CBC Comment Sodium Level 141 Potassium Level 3.5 Chloride Level 104 Carbon Dioxide Level 22.5 L Anion Gap 15 Blood Urea Nitrogen 17 Creatinine 1.26 H Estimated GFR/1.73 m2 60 BUN/Creatinine Ratio 13.5 Glucose Level 223 H Calcium Level 9.2 Total Bilirubin 0.9 Aspartate Amino Transf (AST/SGOT) 20 Alanine Aminotransferase (ALT/SGPT) 47 Alkaline Phosphatase 125 H Troponin I High Sensitivity 11 Total Protein 8.2 Albumin 4.2 Globulin 4.0 Albumin/Globulin Ratio 1.1 Lipase 45 Chemistry Comments Lactic Acid Level 3.6 H 3.7 H Urine Specimen Description Urinal Urine Color Yellow Urine Clarity Clear Urine pH 8.0 Urine Specific [place] 1.015 Urine Protein 100 H Urine Glucose (UA) 250 H Urine Ketones 15 H Urine Occult Blood Negative Urine Nitrite Negative Urine Bilirubin Negative Urine Urobilinogen 0.2 Urine Leukocyte Esterase Negative Urine RBC None seen Urine WBC 0-4 Urine Squamous Epithelial Cells Few Urine Bacteria None seen Urine Mucus None seen Urine Culture Indicated Not ind Volume Urine Centrifuged 10 ml Urine Comment EKG/XRAY/CT/US/VASC/MRI EKG : Intepreting Monitor?: Yes Additional Comment Patient: ANURADHA JEAN Medical Record: [id number] [facility] : 1970, Age: 54Sex: M Location: ER Patient Status: REG ER Service Date/Time: Ordering Physician: MICKY WHITFIELD Name: ELECTROCARDIOGRAM Technologist: [facility] Test Date: 2025-03-20 Test Time: 14:34:16 Pat Name: ANURADHA JEAN Department: EMERGENCY ROOM Patient ID: [facility]-[id number] Room: Gender: M Delivery Assistant: : 1970 Requested By: MICYK WHITFIELD Order Number: [id number] Reading MD: Dr. Larry Martell Measurements Intervals [place] Rate: 70 P: 71 [place]: 158 QRS: 135 QRSD: 166 T: 2 QT: 510 QTc: 551 Interpretive Statements Sinus rhythm RBBB and LPFB Inferolateral infarct, old Baseline wander in lead(s) III,aVL,aVF Electronically Signed On 03-20-2025 18:12:[address] Larry Martell Please click the below link to view image of tracing. EKG Date and Time:03/20/25 143 Electronically Signed by: LARRY MARTELL MD Date and Time: 03/20/251811 NO PRIMARY CARE PROVIDER~ cc: ~ Chest X-Ray : Interpreted By: radiologist Views: 1 VIEW Additional Comments EXAM: DI CHEST,SINGLE VIEW TECHNIQUE: Single frontal chest radiograph CLINICAL HISTORY: HYPERTENSION COMPARISON: DI CHEST,SINGLE VIEW on DOS: 03/17/24 FINDINGS/IMPRESSION: The lungs are clear. The cardiomediastinal silhouette is unremarkable. No pleural effusion or pneumothorax. No acute osseous abnormality. Electronically Signed by:IMAN MERINO MD Date & Time: 03/20/252138 CT #1: Interpreted By: radiologist CT: head With Contrast?: No Impression CT HEAD WITHOUT CONTRAST HISTORY: Hypertensive emergency with a headache. COMPARISON: None available. CONTRAST: Study was performed without contrast. TECHNIQUE: Axial images from the skull base to the vertex with coronal and sagittal reformatted images. This exam was performed according to our departmental dose optimization program. Up-to-date CT equipment and radiation dose reduction techniques are utilized as appropriate. DOSE: CTDIvol: 64.3 mGy; DLP: 1180.9 mGy-cm. FINDINGS: BRAIN PARENCHYMA: No acute hemorrhage, large vascular territory infarct, or mass effect. White matter is within normal limits for age. VENTRICLES/EXTRA-AXIAL SPACES: No evidence of hydocephalus. No extra-axial collection. Basal cisterns are patent. EXTRACRANIAL STRUCTURES: No acute or suspicious ossues abnormality. Normal soft tissues. Complete mucosal opacification of the right frontal sinus; otherwise, imaged portions of the paranasal sinuses and mastoids demonstrate no significant abnormality. Left lens replacement; otherwise, orbits are unremarkable. Mild calcific atherosclerosis of the carotid siphons. IMPRESSION: No acute intracranial abnormality. Electronically Signed by:RYLAN THORPE MD Date & Time: 03/20/25 2209 PROCEDURE: CT CTA ABDOMEN PELVIS Reason for study/Clinical History: mesenteric ischemia;abdominal pain Comparison Study: CT CT ABDOMEN PELVIS on DOS: 03/17/24, CT ABDOMEN PELVIS on DOS: 03/02/20, CT ABDOMEN PELVIS on DOS: 12/28/19 TECHNIQUE: Using a multidector slice CT scanner volumetric data acquisition of abdomen and pelvis was obtained with following intravenous administration of intravenous contrast without any reported adverse effects. 3D images/MIP were performed and reviewed for reporting. Radiation Dose Information: CT Dose: CTDI volume is 28.59 mode was not mGy. Dose-length product is 2822.13 mGy*cm FINDINGS: Vascular: No evidence of aortic aneurysm. Focal noncalcified plaque over the left anterior medial supra renal aorta. Mild atherosclerotic calcification of the infrarenal aorta and bilateral iliacs. Celiac artery, SMA, and KAT and their branches are unremarkable. Bilateral renal arteries are unremarkable. The lung bases are clear. Partially visualized heart is unremarkable. Hepatic steatosis. Mild hepatomegaly. Otherwise, liver, spleen, gallbladder, pancreas and adrenal glands unremarkable. Subcentimeter hypodense bilateral renal lesions that are too small to characterize. Punctate nonobstructing left renal calculus. Otherwise, kidneys, ureters and urinary bladder unremarkable. Prostate measures 3.9 x 3.7 cm. Small hiatal hernia. Mild gastric wall thickening. Small bowel loops unremarka ble. Appendix is unremarkable. Large bowel is unremarkable. No evidence of intraperitoneal free air or free fluid. No significant lymphadenopathy. The soft tissues unremarkable. Sclerotic focus over the right sacral iliac bones which may represent small bone islands with Blastic lesions not excluded. No evidence of acute osseous abnormalities. IMPRESSION: No Evidence of aortic aneurysm or dissection. Mild atherosclerotic calcification of the aorta and bilateral iliacs with calcified and noncalcified plaque. Mild hepatomegaly with hepatic steatosis. Small hiatal hernia. Mild gastric wall thickening which may be due to in adequate distention/gastritis. Electronically Signed by:MARGOT SCHULTZ DO Date & Time: 03/20/251731 CT #2: Interpreted By: radiologist CT: abdomen/pelvis With Contrast?: Yes Impression CAT SCAN Patient: ANURADHA JEAN Medical Record: [id number] [facility] : 1970, Age: 54 Sex: Male Location: ER Patient Status: [facility] ER Service Date/Time: 03/20/25/ Ordering Physician: MICKY WHITFIELD MD Exam: CTA ABDOMEN PELVIS PROCEDURE: CT CTA ABDOMEN PELVIS Reason for study/Clinical History: mesenteric ischemia;abdominal pain Comparison Study: CT CT ABDOMEN PELVIS on DOS: 03/17/24, CT ABDOMEN PELVIS on DOS: 03/02/20, CT ABDOMEN PELVIS on DOS: 12/28/19 TECHNIQUE: Using a multidector slice CT scanner volumetric data acquisition of abdomen and pelvis was obtained with following intravenous administration of intravenous contrast without any reported adverse effects. 3D images/MIP were performed and reviewed for reporting. Radiation Dose Information: CT Dose: CTDI volume is 28.59 mode was not mGy. Dose-length product is 2822.13 mGy*cm FINDINGS: Vascular: No evidence of aortic aneurysm. Focal noncalcified plaque over the left anterior medial supra renal aorta. Mild atherosclerotic calcification of the infrarenal aorta and bilateral iliacs. Celiac artery, SMA, and KAT and their branches are unremarkable. Bilateral renal arteries are unremarkable. The lung bases are clear. Partially visualized heart is unremarkable. Hepatic steatosis. Mild hepatomegaly. Otherwise, liver, spleen, gallbladder, pancreas and adrenal glands unremarkable. Subcentimeter hypodense bilateral renal lesions that are too small to characteri ze. Punctate nonobstructing left renal calculus. Otherwise, kidneys, ureters and urinary bladder unremarkable. Prostate measures 3.9 x 3.7 cm. Small hiatal hernia. Mild gastric wall thickening. Small bowel loops unremarkable. Appendix is unremarkable. Large bowel is unremarkable. No evidence of intraperitoneal free air or free fluid. No significant lymphadenopathy. The soft tissues unremarkable. Sclerotic focus over the right sacral iliac bones which may represent small bone islands with Blastic lesions not excluded. No evidence of acute osseous abnormalities. IMPRESSION: No Evidence of aortic aneurysm or dissection. Mild atherosclerotic calcification of the aorta and bilateral iliacs with calcified and noncalcified plaque. Mild hepatomegaly with hepatic steatosis. Small hiatal hernia. Mild gastric wall thickening which may be due to inadequate distention/gastritis. Electronically Signed by:MARGOT SCHULTZ DO Date & Time: 03/20/251731 Dictated by: MARGOT SCHULTZ DO Dictation date and time: 03/20/251731 Primary Care Provider: NO PRIMARY CARE PROVIDER cc: MICKY WHITFIELD MD ~ Medical Decision Making Additional information obtaine: N/A Findings MDM: Limited: (2 points from category 1 or one discussion with independent historian). Moderate: one of the following (3 points from category 1, or independent interpretations of tests performed by another physician/QHP: (ct,ecg,rad esdras,rhythm strip,or comparing xray to prior), or discussion of tests or management with other professionals (not including [facility] ER doc/PA or family members.) High: (2 of 3 from : category 1 (3 points), independent interpretation of tests performed by another physician/QHP, and discussion of tests or management). Prior ER notes reviewed: Category 1: Number of Tests ordered or reviewed: [] Number of Independent Historians: [] Non [facility] ER notes reviewed: 1. 2. 3. Category 2: I independently interpreted the: [] Category 3: Discussion with other professionals: [] SOCIAL DETERMINANTS OF HEALTH Problems related to: ( )Challenges with access to Primary Care or Outpatient Speciality Care ( )Psychosocial circumstances such as mental health issues ( )Social environment: such as violence or substance abuse ( )Housing and economic circumstances: such as homelessness ( )Employment and unemployment: such as recently loss of employment ( )Occupational exposures or injuries: ( )Accessing ED outside of normal PCP hours ( )Language barrier: ( )Primary support group, including family circumstances: Prescription Management: Rx strength meds given in ED: [] New Prescriptions: [] ( )I have reviewed the patient's medications and I do not recommend any changes at this time. (Applies only if checked) Comorbid conditions include but are not limited to: [] Testing or interventions considered: [] Differential includes but is not limited to: [] Differential Dx:Considerations: N/A Additional Comments See MDM Departure Referrals: NO PRIMARY CARE PROVIDER (PCP) Prescriptions Metformin HCl (Metformin HCl) 500 Mg Tablet 1 TAB PO BID for 30 Days, #60 TAB Prov: MADY SCHNEIDER MD 03/21/25 Signature Scribe Signature: No scribe Attestation: Scribed for Micky Whitfield MD by Micky Whitfield . 03/22/2025 [id number] MICKY WHITFIELD MD Mar 20, 2025 20:31 YUDITH MARTELL SCRIBE Mar 23, 2025 11:35
[2025-03-20] MEDS ORDERED: potassium Cl 20 mEq SR tablet PO PRN ×2 (20:45)
[2025-03-20] MEDS ORDERED: potassium Cl 40MEQ/1/2NS 520ml 520 ML IV PRN (20:45)
[2025-03-20] MEDS ORDERED: magnesium sulf-water 2g/50mL 50 ML IV PRN (20:45)
[2025-03-20] MEDS ORDERED: magnesium Cl slow-release 64mg tablet PO PRN (20:45)
[2025-03-20] MEDS ORDERED: ondansetron/PF 4mg/2ml inj IV PRN (20:45)
[2025-03-20] MEDS ORDERED: magnesium hydroxide 30ml (MOM) UD suspension PO PRN (20:45)
[2025-03-20] MEDS ORDERED: magnesium sulf-water 4G/100mL 100 ML IV PRN (20:45)
[2025-03-20] MEDS ORDERED: niCARDipine-NS 40mg/200ml IVPB 200 ML IV SCH ×2 (21:10→21:12)
[2025-03-20] MEDS ORDERED: DEXTROSE 15 GM of carb/4 tabs (each vial/BOTTLE has 4 tablets) PO PRN ×2 (21:15)
[2025-03-20] MEDS ORDERED: glucagon, human recombinant 1mg kit SUBCUT PRN (21:15)
[2025-03-20] MEDS ORDERED: dextrose 50%-water 50ml dispensing syringe IV PRN ×2 (21:15)
[2025-03-20] MEDS: CefTRIAXone/D5W-Rocephin 1gm 50 ML IV ONE (21:21)
[2025-03-20] MEDS: potassium CL 10mEq/100ml bag 100 ML IV SCH (21:22)
[2025-03-20] MEDS: diazepam inj 5 MG/ML inj. IV ONE (21:22)
--- NOTE | 2025-03-20 21:41 | RADIOLOGY REPORT ---
EXAM: DI CHEST,SINGLE VIEW TECHNIQUE: Single frontal chest radiograph CLINICAL HISTORY: HYPERTENSION COMPARISON: DI CHEST,SINGLE VIEW on DOS: 03/17/24 FINDINGS/IMPRESSION: The lungs are clear. The cardiomediastinal silhouette is unremarkable. No pleural effusion or pneumothorax. No acute osseous abnormality.
[2025-03-20] MEDS: niCARDipine-NS 40mg/200ml IVPB 200 ML IV SCH (22:12)
[2025-03-20] MEDS: normal saline 500ml IV soln 500 ML IV ONE (22:12)
[2025-03-20 22:24] LABS: URINE AMPHETAMINE SCREEN NEGATIVE (Neg); URINE BARBITUATE SCREEN NEGATIVE (Neg); URINE BENZODIAZEPINES SCREEN NEGATIVE (Neg); URINE CANNABINOID SCREEN POSITIVE (Neg); URINE COCAINE SCREEN NEGATIVE (Neg); URINE METHADONE SCREEN NEGATIVE (Neg); URINE OPIATE SCREEN POSITIVE (Neg); URINE PHENCYCLIDINE SCREEN NEGATIVE (Neg)
--- NOTE | 2025-03-20 22:41 | HISTORY AND PHYSICAL-Residence ---
History & Physical Providers to CC Resident Creating Document: GURWINDER VERA, RES ~ History of Present Illness Primary Medical Doctor: [facility]. Montessori Lead Teacher: None Reason for Admit\Complaint: Intractable nausea, abdominal pain, hypertensive emergency, MAGALY History of Present Illness The patient is a 54-year-old male with a past medical history of hypertension and hyperlipidemia, presenting to the ED with severe nausea, vomiting, and abdominal pain that began 3 days ago. Initially, he continued taking his home medications but recently ran out, after which symptoms worsened. He reports vomiting clear liquid without blood or coffee-ground material. The abdominal pain is located in the entire lower quadrant, described as 10/10 in intensity prior to ED arrival, now 4/10 after pain medication. The pain is non-radiating, aggravated by movement, and has no relieving factors. It is not associated with diarrhea. He also reports intermittent headaches during this period. Associated symptoms include fever, chills, and palpitations at home. He denies chest pain, diarrhea, recent travel, or consumption of outside food. Negative symptoms include no dysuria, no hematuria, no melena, and no hematemesis. The patient has a history of chronic cannabinoid use and was admitted one year ago for cannabinoid hyperemesis syndrome. In the ED, his blood pressure was in the 200s, initially managed with Cardizem drip, later switched to nicardipine drip due to persistent elevation. He received Zofran for nausea. Primary care physician: [facility]. Social: Lives alone at home. Advance care planning: Spent 16 minutes discussing resuscitative measures; patient opted for Full Code. Allergies: Coded Allergies: No Known Allergies (Unverified , 03/17/24) Home Medications Home Medications Active Losartan Potassium 50 Mg Tablet 100 Mg PO DAILY 30 Days Ondansetron HCl 4 Mg Tablet 1 Tab PO Q4HPRN PRN 3 Days PROTONIX tablet (Pantoprazole Sodium) 40 Mg Tablet.dr 40 Mg PO DAILY 30 Days Culturelle (Lactobacillus Rhamnosus) 10 Billion Cell Capsule 1 Cap PO DAILY 30 Days Cefdinir 300 Mg Capsule 1 Cap PO Q12H 7 Days Metoprolol Succinate 25 Mg Tab.sr.24h 50 Mg PO DAILY 30 Days Take two tablets of 25 mg daily Amlodipine Besylate 5 Mg Tablet 10 Mg PO DAILY Lovastatin 40 Mg Tablet 1 Tab PO DAILY 30 Days Reported Gabapentin 100 Mg Capsule 300 Mg PO BID 30 Days Aspirin 81 Mg Tab.chew 1 Tab.chew PO DAILY Past Medical History Past Medical History Hypertension Nok-knpiwon-edmjextdn type 2 diabetes mellitus Hyperlipidemia Renal calculi Past Surgical History Surgical History Comment Hernia repair Extracorporeal lithotripsy for renal stone Family History Family History: FH: hypertension FATHER (complications from being hit by a car on side of road), , Age: 73 Past Social History Social History Comment Primary care physician-[facility] Patient denies any alcohol, smoking but did admitted smoking marijuana daily 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 Supple, full range of motion, no JVD Cardiac: Regular rhythm, regular rate with no murmurs all over the precordium. Respiratory: Equal breath sounds bilaterally, no tachypnea, no wheezing ,rub or rales, Chest wall is symmetric and without deformity. Gastrointestinal: Abdomen symmetric, mildly tender on palpation, no rebound tenderness, no rigidity, normal bowel sounds x4 quadrant, normoactive, no hepatosplenomegaly Musculoskeletal: No pedal edema Neurological: Mental status exam: alert and consciousness, orientation, memory, speech - Cranial nerve test: Cranial nerves 2-12 intact - Motor system: Normal Nutrition, normal tone, Power 5/5, no involuntary movements - Sensory system: Intact - Reflex testing: Biceps, triceps and knee reflexes 2+ - Cerebellar: Normal Skin: Warm and dry Extremities : No Edema, peripheral pulses felt, clubbing seen in upper extremity Psychiatric:Appropriate mood and affect Diagnostic Data Last Recorded Lab Results: 03/20/25 1444 03/20/25 1444 Advance Care Planning Advanced Care plannin - 30 Minutes Additional Plan 54 years old male with past medical history of cannabis use disorder, hypertension he is currently evaluated for Hypertensive emergency with end-organ damage Acute kidney injury likely 2/2 Acute hypertensive nephropathy End-organ hypoperfusion Sirs criteria-WBC elevated, high respiratory:, temperature presented home Blood pressure-220/113 mmHg Heart rate-normal Electrolytes-normal, lactic acid-3.6/3.7/3.3 due to end-organ hypoperfusion from hypertensive emergency give 500 mL bolus for the patient and we will trend lactic acid Creatinine-1.26, BUN-17, BUN/creatinine 13.5, urinalysis is positive for protein Chest c-gnc-ijhnoa, follow up with CT head without contrast-patient mentioned headaches In ED the patient was initially started on Cardizem drip but blood pressure is not controlled with Cardizem drip so we stopped Cardizem drip and started nicardipine Started nicardipine- Target blood pressure is 160 mmHg systolic Follow up with vitals, daily labs, PT and INR, CT head without contrast, U tox, spot urine studies Continue monitor the patient in the telemetry Intractable nausea/vomiting/abdominal pain Cannabinoids hyperemesis syndrome Sepsis-source of infection possibly gastritis Leukocytosis likely secondary to gastritis U tox screen positive for cannabinoids Patient lactic acid is elevated and received 500 cc normal saline bolus Leukocyte-elevated 14.4 follow up with protocol, ESR, CRP CT abdomen and pelvis shows-No Evidence of aortic aneurysm or dissection. Mild atherosclerotic calcification of the aorta and bilateral iliacs with calcified and noncalcified plaque.Mild hepatomegaly with hepatic steatosis. Small hiatal hernia. Mild gastric wall thickening which may be due to inadequate distention/gastritis. Started patient on IV ceftriaxone daily Patient EKG shows borderline QT prolongation so we will monitor EKG in a.m. tomorrow Zofran p.r.n. for nausea, morphine for abdominal pain, Protonix MEtoclopramide PRN Follow up with blood culture Acute kidney injury likely 2/2 renal tubular stasis hypertensive nephropathy UA is positive protein Creatinine is elevated Follow up with spot urine Giu-azleiyq-pqffydisu type 2 diabetes mellitus HB A1c-6.7, glucose 223 Started hyperglycemia/hypoglycemia nylalwsd-llj-ncmz Hyperlipidemia Patient takes lovastatin 40 mg daily at home Follow up with lipid panel, continue home med after med rec Advance care: I spent a total of 16 minutes reviewing various resuscitative measures/ACP with patient. The patient decided to be full code Code Status: Full DVT prophylaxis: SCDs Analgesia/Sedation: Morphine Line/tube: Peripheral PT: Ordered Prognosis: Guarded Disposition: Patient will be monitored in PCU with telemetry, follow up with CT head without contrast and if it is negative started DVT prophylaxis. Consult gastroenterology in am Gurwinder Vera PGY1-Internal Medicine Resident I saw and discussed the care of this patient with the resident team I agree with assessment and plan as documented Date of Service: Mar 20, 2025 Billing Provider: MALCOM SONG MD, SATISH, RES Mar 20, 2025 22:41 MALCOM SONG MD Mar 21, 2025 17:29
[2025-03-20 23:05] LABS: CHOL/HDL RATIO 5.5 (0.00-4.99); CREATININE 1.25 MG/DL (0.60-1.10); ETHANOL < 10 MG/DL (<10); LDL CHOLESTEROL 137 MG/DL (50-100); TOTAL CARBON DIOXIDE 25.0 MMOL/L (24-32); eCRCL 62 ML/MIN; eGFR 60 ML/MIN
[2025-03-20 23:18] LABS: OSMOLALITY UA 564.0 MOSM/K (50-1400)
--- NOTE | 2025-03-20 23:18 | RADIOLOGY REPORT ---
CT HEAD WITHOUT CONTRAST HISTORY: Hypertensive emergency with a headache. COMPARISON: None available. CONTRAST: Study was performed without contrast. TECHNIQUE: Axial images from the skull base to the vertex with coronal and sagittal reformatted images. This exam was performed according to our departmental dose optimization program. Up-to-date CT equipment and radiation dose reduction techniques are utilized as appropriate. DOSE: CTDIvol: 64.3 mGy; DLP: 1180.9 mGy-cm. FINDINGS: BRAIN PARENCHYMA: No acute hemorrhage, large vascular territory infarct, or mass effect. White matter is within normal limits for age. VENTRICLES/EXTRA-AXIAL SPACES: No evidence of hydocephalus. No extra-axial collection. Basal cisterns are patent. EXTRACRANIAL STRUCTURES: No acute or suspicious ossues abnormality. Normal soft tissues. Complete mucosal opacification of the right frontal sinus; otherwise, imaged portions of the paranasal sinuses and mastoids demonstrate no significant abnormality. Left lens replacement; otherwise, orbits are unremarkable. Mild calcific atherosclerosis of the carotid siphons. IMPRESSION: No acute intracranial abnormality.
[2025-03-20 23:20] LABS: INR 1.1 INR
[2025-03-20 23:20] LABS: CREATININE,URINE RANDOM 80.0 MG/DL; TOTAL PROTEIN,URINE RANDOM 72.8 MG/DL
[2025-03-20 23:25] LABS: PRO BRAIN NATRIURETIC PEPTIDE 436 PG/ML (0-125)
[2025-03-20 23:35] LABS: UA EOSINOPHILS NO EOS /HPF
[2025-03-21] MEDS: mag hydrox/Alum hydrox/simeth 30ml oral suspension PO PRN (00:04)
[2025-03-21 03:07] LABS: MEAN PLATELET VOLUME 9.4 FL (7.4-10.4); RED CELL DISTRIBUTION WIDTH 13.3 % (11.5-14.5)
[2025-03-21 03:28] LABS: CREATININE 1.28 MG/DL (0.60-1.10); TOTAL CARBON DIOXIDE 27.8 MMOL/L (24-32); eCRCL 60 ML/MIN; eGFR 59 ML/MIN
[2025-03-21] MEDS ORDERED: METO-411 PO (04:14)
[2025-03-21] MEDS ORDERED: LOSA100T58 PO (04:14)
[2025-03-21] MEDS ORDERED: AMLO10TA13 PO (04:14)
[2025-03-21] MEDS ORDERED: AMLO-708 PO (04:14)
[2025-03-21] MEDS ORDERED: ROSU20TA98 PO (06:19)
[2025-03-21] MEDS ORDERED: PANT-47 PO (06:20)
[2025-03-21 07:00] VITALS: RESP 16; O2SAT 96
[2025-03-21] MEDS: INSULIN LISPRO 100 UNIT/ML INSULN.PEN MULTI-DOSE SQ SCH (07:00)
[2025-03-21] MEDS ORDERED: metoclopramide 5 mg/ml inj IV PRN (07:30)
[2025-03-21] MEDS: K and/or MAG REPLACEMENT MC SCH (08:00)
[2025-03-21] MEDS: docusate sod 100mg capsule PO SCH (09:15)
[2025-03-21] MEDS: normal saline 1000ml 1,000 ML IV SCH (10:13)
[2025-03-21 11:53] VITALS: BP 159/86; PULSE 83; RESP 12; TEMP 97.5; O2SAT 98
[2025-03-21] MEDS: metoprolol succinate 25mg (24-HOUR) SR. Tablet PO SCH (12:00)
[2025-03-21] MEDS ORDERED: METF-1203 PO (14:07)
[2025-03-21 14:46] LABS: CREATININE 1.08 MG/DL (0.60-1.10); TOTAL CARBON DIOXIDE 27.0 MMOL/L (24-32); eCRCL 71 ML/MIN; eGFR 72 ML/MIN
[2025-03-21 18:00] VITALS: BP 136/76; PULSE 58; RESP 17; TEMP 97.5; O2SAT 97
--- NOTE | 2025-03-21 19:09 | DISCHARGE SUMMARY-Residence ---
Discharge Summary Providers to CC Resident Creating Document: MYRA HUA RES ~ Discharge Summary Admission Diagnosis: INTERACTABLE NAUSEA/ABDOMINAL PAIN,SEPSIS Hospital Course DATE OF ADMISSION: 03/20/25 DATE OF DISCHARGE: 03/21/25 As it HPI: The patient is a 54-year-old male with a past medical history of hypertension and hyperlipidemia, presenting to the ED with severe nausea, vomiting, and abdominal pain that began 3 days ago. Initially, he continued taking his home medications but recently ran out, after which symptoms worsened. He reports vomiting clear liquid without blood or coffee-ground material. The abdominal pain is located in the entire lower quadrant, described as 10/10 in intensity prior to ED arrival, now 4/10 after pain medication. The pain is non-radiating, aggravated by movement, and has no relieving factors. It is not associated with diarrhea. He also reports intermittent headaches during this period. Associated symptoms include fever, chills, and palpitations at home. He denies chest pain, diarrhea, recent travel, or consumption of outside food. Negative symptoms include no dysuria, no hematuria, no melena, and no hematemesis. The patient has a history of chronic cannabinoid use and was admitted one year ago for cannabinoid hyperemesis syndrome. In the ED, his blood pressure was in the 200s, initially managed with Cardizem drip, later switched to nicardipine drip due to persistent elevation. He received Zofran for nausea. [facility] care [facility]: [facility]. Social: Lives alone at home. Advance care planning: Spent 16 minutes discussing resuscitative measures; patient opted for Full Code. During the hospital stay, patient did not have any episodes of emesis. He feels fine as well. WBC count slightly went up. Acute kidney injury likely due to vasomotor nephropathy resolved with IV fluids. No electrolyte abnormalities. Abdomen/pelvis CTA showed possible gastritis. Today, he is stable for discharge. He recovered sooner than expected Discharge instructions Patient needs follow-up with primary care physician in 1-2 weeks. Read side effects of all your medication. Strongly advised to stop cannabis and risks explained. Further management of diabetes per primary care physician. Adjustment of blood pressure medication done during hospital stay. Maintain blood pressure and heart rate log book for 2-3 weeks and follow-up with the primary care physician for hypertension. Increase oral fluid more than 1500 mL per day for 7-10 days. Repeat CBC and BMP with PCP Discharge Diagnosis\Comment: Hypertensive emergency with end-organ damage Acute kidney injury Intractable nausea-resolved Likely cannabinoids hyperemesis syndrome Non-insulin dependent diabetes mellitus type 2 Hyperlipidemia Operations\Procedures: None Consultants: None Complications: None Condition on DC: Stable New Medications: Metformin HCl (Metformin HCl) 500 Mg Tablet 1 TAB PO BID for 30 Days, #60 TAB Continued Medications: Amlodipine Besylate (Amlodipine Besylate) 10 Mg Tablet 1 TAB PO DAILY Aspirin (Aspirin) 81 Mg Tab.chew 1 TAB.CHEW PO DAILY, TAB.CHEW Losartan Potassium (Losartan Potassium) 100 Mg Tablet 1 TAB PO DAILY Metoprolol Succinate (Metoprolol Succinate) 100 Mg Tab.sr.24h 1 TAB PO DAILY Pantoprazole Sodium (PROTONIX tablet) 40 Mg Tablet.dr 40 MG PO DAILY, TAB.SR Rosuvastatin Calcium (Rosuvastatin Calcium) 20 Mg Tablet 1 TAB PO HS for 30 Days, #30 TAB 0 Refills Discharge Summary: As above *Problems/Diagnosis: (1) Cannabinoid hyperemesis syndrome Total Time Spent on D/C: > 30 Minutes Date of Service: Mar 21, 2025 Billing Provider: MADY SCHNEIDER MD Common Visit Codes: 89515-QTZ/OBS DISCH DAY >30min JAVIDSHANNANVERÓNICA RES Mar 21, 2025 19:08 MADY SCHNEIDER MD Mar 22, 2025 15:11
[2025-03-21 19:14] LABS: MEAN PLATELET VOLUME 9.2 FL (7.4-10.4); RED CELL DISTRIBUTION WIDTH 13.6 % (11.5-14.5)
[2025-03-22] MEDS ORDERED: metoprolol succinate 25mg (24-HOUR) SR. Tablet PO SCH (08:00)
== END 2025-03-21 22:45 | disposition home or self-care (01) | DRG 720 ==
LOC: ER 14:12 → ED HOLD 20:44 → PCU 3S 03-21 07:15
PROVIDERS: ADMIT Internal Medicine; ATTEND Internal Medicine
PROC: B4201ZZ Computerized Tomography (CT Scan) of Abdominal Aorta using Low Osmolar Contrast (ICD-10-PCS; principal; 2025-03-20)
PROC: B4241ZZ Computerized Tomography (CT Scan) of Superior Mesenteric Artery using Low Osmolar Contrast (ICD-10-PCS; 2025-03-20)
PROC: B4281ZZ Computerized Tomography (CT Scan) of Bilateral Renal Arteries using Low Osmolar Contrast (ICD-10-PCS; 2025-03-20)
PROC: B42C1ZZ Computerized Tomography (CT Scan) of Pelvic Arteries using Low Osmolar Contrast (ICD-10-PCS; 2025-03-20)
PROC: B42H1ZZ Computerized Tomography (CT Scan) of Bilateral Lower Extremity Arteries using Low Osmolar Contrast (ICD-10-PCS; 2025-03-20)
PROC: B4211ZZ Computerized Tomography (CT Scan) of Celiac Artery using Low Osmolar Contrast (ICD-10-PCS; 2025-03-20)
DX: A41.9 Sepsis, unspecified organism (principal); N17.0 Acute kidney failure with tubular necrosis; I16.1 Hypertensive emergency; E11.9 Type 2 diabetes mellitus without complications; I70.0 Atherosclerosis of aorta; K76.0 Fatty (change of) liver, not elsewhere classified; K29.70 Gastritis, unspecified, without bleeding; R16.0 Hepatomegaly, not elsewhere classified; K44.9 Diaphragmatic hernia without obstruction or gangrene; I70.203 Unspecified atherosclerosis of native arteries of extremities, bilateral legs; E78.00 Pure hypercholesterolemia, unspecified; R11.16 Cannabis hyperemesis syndrome; I10 Essential (primary) hypertension; I25.10 Atherosclerotic heart disease of native coronary artery without angina pectoris; I25.2 Old myocardial infarction; Z82.49 Family history of ischemic heart disease and other diseases of the circulatory system
CPT/HCPCS: 36415; 70450; 71045; 74174; 80048; 80053; 80061; 80305; 80320; 81001; 82570; 82948; 83036; 83605; 83690; 83735; 83880; 83935; 84133; 84145; 84156; 84300; 84484; 85025; 85610; 85651; 86140; 87040; 87081; 87207; 93005; 96365; 96367; 96375; 99285; G0378; J0696; J1815; J2270; J2405; J2470; J3360; J3480; J3490; J7030; J7040; Q9967